=== PATIENT | male | born 1950 | race Caucasian/White ===

== ENCOUNTER 2019-07-22 07:31 | Outpatient (RCR) | payer MEDICARE, OTHER, SELFPAY ==
[2019-07-21 13:01] LABS: Hematocrit 27.8 % (42.0-52.0); Hemoglobin 9.2 g/dL (14.0-18.0)
[2019-07-22] VITALS (10 sets, daily range): BP systolic 139–174; BP diastolic 48–66; PULSE 58–66; RESP 16; TEMP 36.6–37; O2SAT 98–100
[2019-07-22] MEDS: SODIUM CHLORIDE 0.9% IV 250 ML 30 ML IV CONT (08:12)
[2019-07-22] MEDS: HEPARIN SOD FLUSH 500 UNITS/5 ML SYRINGE (13:55)
== END 2019-10-19 23:59 | disposition home or self-care (01) ==
LOC: ANHCPCTRAN 07:31
PROVIDERS: PCP Internal Medicine; Visit Provider Internal Medicine Medical Oncology
DX: I25.10 Atherosclerotic heart disease of native coronary artery without angina pectoris (principal); K92.2 Gastrointestinal hemorrhage, unspecified; N18.3 Chronic kidney disease, stage 3 (moderate); D50.0 Iron deficiency anemia secondary to blood loss (chronic); D61.818 Other pancytopenia
CPT/HCPCS: 36415; 36430; 85014; 85018; 86850; 86900; 86901; 86922; P9038; J7050

== ENCOUNTER 2019-09-06 17:10 | Inpatient (IN) | payer MEDICARE, OTHER, SELFPAY ==
[2019-09-06] VITALS (18 sets, daily range): BP systolic 132–187; BP diastolic 40–74; PULSE 83–110; RESP 17–24; TEMP 36.8–37.8; O2SAT 91–100; BMI 40.1
--- NOTE | ~2019-09-06 | US_ITS ---
EXAMINATION: US venous doppler LE EXAM DATE: 09/07/2019 16:59 INDICATION: Lateral leg edema. TECHNIQUE: Multiple grayscale, color flow and Doppler images of the lower extremity deep venous syste ms bilaterally were obtained and reviewed. Comparison is made to prior examination from 07/05/2019. FINDINGS: Right side: The right common femoral, femoral and profunda veins demonstrate normal color flow, respi ratory variation, augmentation and compressibility. Compressibility, color flow confirmed within the right popliteal, posterior tibial, peroneal, and greater saphenous veins. Left side: The left common femoral, femoral and profunda veins demonstrate normal color flow, respira tory variation, augmentation and compressibility. Compressibility, color flow confirmed within the l eft popliteal, posterior tibial, peroneal, and greater saphenous veins. IMPRESSION: 1. No lower extremity deep venous thrombosis bilaterally. Reviewed, dictated and finalized at location A. OW CLERK
--- NOTE | ~2019-09-06 | XR_ITS ---
EXAMINATION: XR chest 2V EXAM DATE: 09/06/2019 18:54 INDICATION: Shortness of breath. TECHNIQUE: Frontal and lateral projections of the chest obtained and reviewed. Comparison is made to prior examination from 08/16/2019. FINDINGS: Again there is moderate-sized right pleural effusion with adjacent airspace disease partly atelectasis. No pneumothorax. Cardiac silhouette is stable in size compared to prior exam. Right-maynor ed portacatheter. Bilateral shoulder primary osteoarthritis. Compared to prior exam, probable interva l increase in size of the right pleural effusion. IMPRESSION: 1. Moderate right pleural effusion, adjacent atelectasis. 2. Can't exclude basilar edema or pneumonia bilaterally. Reviewed, dictated and finalized at location A. STERED RESPIRATORY TECHNICIAN
--- NOTE | ~2019-09-06 | US_ITS ---
EXAMINATION: US paracentesis abd w/image DATE: 09/07/2019 16:59 INDICATION: Ascites. TECHNIQUE: The procedure and its risks and benefits were discussed with patient in the patient's go r of assistant district attorney. Potential risks discussed included bleeding and infection. The skin was prepped and dr aped in sterile fashion. 1% lidocaine was used for local anesthesia. Under ultrasound guidance, a 5 F r catheter with trochar was advanced into the ascites in the left lower quadrant. Fluid was aspirated into vacuum bottles. The catheter was removed, and a dressing was applied. There were no immediate c omplications. FINDINGS: Ultrasound images demonstrate ascites and the catheter within the fluid. IMPRESSION: 1. Successful ultrasound-guided paracentesis yielding 1450 mL of fluid. Reviewed, dictated and finalized at location A. OR SVP
--- NOTE | ~2019-09-06 | CT_ITS ---
EXAMINATION: CT brain wo con EXAM DATE: 09/06/2019 22:01 INDICATION: Temporary change in awareness. TECHNIQUE: Spiral CT of the head was performed without contrast. Axial, coronal and sagittal images were reviewed. The dose-length product (DLP) for this examination was 681.00 mGy-cm. The exposure w as tailored according to patient size, and iterative reconstruction (ASIR) was used as additional dos e reduction technique. Comparison is made to prior examination from 07/28/2019. FINDINGS: There is no acute intraparenchymal hemorrhage. No evidence of intraparenchymal brain mass lesion. No evidence of acute infarction. Please note that initial head CT has limited sensitivity f or small or acute infarctions. There is mild periventricular and subcortical hypodensity, nonspecific but probably related to small vessel ischemic disease. There is mild prominence of the sulci and v entricles related to cerebral atrophy. There is intracranial carotid arteriosclerosis. There are n o extra-axial collections. There is no mass effect or midline shift. Patient has had bilateral ocul ar lens surgery. Soft tissue is unremarkable. Resolution of previously seen right maxillary sinus h emorrhage. There is chronic left sphenoid opacity. IMPRESSION: 1. No acute intracranial findings. 2. Chronic age related findings. Reviewed, dictated and finalized at location A. CS ENGINEER
--- NOTE | ~2019-09-06 | CT_ITS ---
EXAMINATION: CT chest wo con EXAM DATE: 09/06/2019 21:35 INDICATION: Shortness of breath. Confusion. TECHNIQUE: Spiral CT of the chest without contrast. Axial, coronal and sagittal images were reviewe d. Coronal maximum intensity pixel images of chest reviewed. The dose-length product (DLP) for this examination was 681.00 mGy-cm. The exposure was tailored according to patient size (auto mA exposur e control), and iterative reconstruction (ASIR) was used as additional dose reduction technique. The re is no prior study for comparison. FINDINGS: There is large right pleural effusion with completely collapsed right lower lobe. Subsegme ntal atelectasis of the right upper and right middle lobes. Left lung is clear. No pericardial effusi on. Tracheobronchial tree is patent. There is no mediastinal, hilar or axillary lymphadenopathy. There is no pneumothorax. Mild cardiomegaly. There is moderate coronary arterial calcification, a rterial sclerosis. Moderate amount of perihepatic ascites. Cholecystectomy clips. Cirrhosis and hepa tosplenomegaly. There is moderate thoracic spondylosis without focal osteoblastic or osteolytic lesi ons identified. IMPRESSION: 1. Large right pleural effusion with adjacent compressive atelectasis. 2. Hepatosplenomegaly, cirrhosis, ascites. Reviewed, dictated and finalized at location A. MECHANIC
--- NOTE | ~2019-09-06 | US_ITS ---
EXAMINATION: US thoracentesis DATE: 09/07/2019 16:59 INDICATION: Large right pleural effusion TECHNIQUE: The procedure and its risks and benefits were discussed with the patient and the patient's power of trust and estates attorney. Potential risks discussed included bleeding, infection, and pneumothorax. The pat ient understood the risks and agreed to proceed. The skin was prepped and draped in sterile fashion. 1% lidocaine was used for local anesthesia. Under ultrasound guidance, a 5 Fr catheter with trochar w as advanced into the large right pleural effusion. Fluid was aspirated. The catheter was removed, and a dressing was applied. There were no immediate complications. FINDINGS: Ultrasound images demonstrate a large right pleural effusion and the catheter within the fluid. IMPRESSION: 1. Successful ultrasound-guided thoracentesis yielding 1000 mL of dark reddish fluid. Reviewed, dictated and finalized at location A. NG INSPECTOR
--- NOTE | ~2019-09-06 | XR_ITS ---
EXAMINATION: XR chest 2V DATE: 09/07/2019 16:51 INDICATION: Postthoracentesis TECHNIQUE: AP and lateral views of the chest are obtained. COMPARISON: 09/06/2019 FINDINGS: There is interval decrease in size of the right pleural effusion postthoracentesis. No pneu mothorax is identified. A right subclavian Port-A-Cath ends with its tip in the midsuperior vena cava . There is stable cardiomegaly. Airspace opacities of the right mid and lower lung zones likely refle ct passive atelectasis. IMPRESSION: 1. Interval decrease in size of right pleural effusion postthoracentesis without pneumothorax. 2. Stable cardiomegaly. 3. Airspace opacities of the right mid and lower lung zones, likely passive atelectasis. Reviewed, dictated and finalized at location A. ICAL SERVICES ASST IMPRESSION: 1. Interval decrease in size of right pleural effusion postthoracentesis withou t pneumothorax. 2. Stable cardiomegaly. 3. Airspace opacities of the right mid and lower lung zones, likely passive ate lectasis.
--- NOTE | 2019-09-06 17:18 | ED.SOB ---
HPI - SOB/Dyspnea General Chief Complaint: Shortness of Breath/Dyspnea Stated Complaint: sob Time Seen by Provider: 09/06/19 17:37 Source: patient and family Mode of arrival: EMS Limitations: no limitations History of Present Illness HPI Narrative: A 69 y/o male presents to the ED, via EMS from [facility], with c/o SOB. Per patient's family, they state that they were called by assisted living staff for sudden onset SOB, cough, weakness, wheezing, and cold skin. The patient did not have a fever at the [facility], but has a 100F at the ED. Family states that he is incoherent and that he has shallow breathing. Pt fell 1 month ago and has been going to therapy daily. He has a PMHx of cirrhosis, HTN, hyperlipidemia, and diabetes. Pt has a DNR. MD elicited complaint: shortness of breath Pertinent past history: diabetes Onset (ago): hour(s) (Today) Timing: constant Known history of: diabetes Associated symptoms: fever, cough, wheezing and other (Cold skin, incoherent, shallow breathing, weakness) Related Data Home Medications Medication Instructions Recorded Confirmed Hm Complete 50+ 1 tab-cap PO DAILY 07/04/19 09/06/19 Humulin R U-500 (Conc) Kwikpen 30 - 55 unit SUBCUT TIDWM PRN 07/04/19 09/06/19 Thalomid 50 mg PO BID 07/04/19 09/06/19 Xifaxan 550 mg PO BID 07/04/19 09/06/19 allopurinol 100 mg PO Q12H 07/04/19 09/06/19 ascorbic acid (vitamin C) [Vitamin 1 g PO QNOON 07/04/19 09/06/19 C] aspirin 81 mg PO DAILY 07/04/19 09/06/19 atorvastatin 40 mg PO HS 07/04/19 09/06/19 bumetanide 2 mg PO DAILY 07/04/19 09/06/19 cholecalciferol (vitamin D3) 2,000 unit PO Q12H 07/04/19 09/06/19 [Vitamin D3] cinnamon bark [Cinnamon] 1,000 mg PO QNOON 07/04/19 09/06/19 clonidine HCl 0.1 mg PO DAILY 07/04/19 09/06/19 escitalopram oxalate 10 mg PO HS 07/04/19 09/06/19 isosorbide dinitrate 5 mg PO Q12H 07/04/19 09/06/19 nitroglycerin 0.4 mg SUBLINGUAL PRN PRN 07/04/19 09/06/19 omega 4-kpx-rdn-fish oil [Fish Oil] 1 cap PO BID 07/04/19 09/06/19 pregabalin 75 mg PO Q12H 07/04/19 09/06/19 quinapril 10 mg PO DAILY 07/04/19 09/06/19 ranolazine 500 mg PO Q12H 07/04/19 09/06/19 ursodiol 500 mg PO TID 07/04/19 09/06/19 Vitamin B-12 2,000 mcg PO QNOON 09/06/19 09/06/19 lactulose 5 ml PO QPM 09/06/19 09/06/19 lactulose 20 ml PO BID 09/06/19 09/06/19 pantoprazole [Protonix] 40 mg PO QAM 09/06/19 09/06/19 Allergies Allergy/AdvReac Type Severity Reaction Status Date / Time diphenhydramine Allergy Unknown Itching Verified 08/24/19 13:21 Penicillins Allergy Unknown Unknown Verified 08/24/19 13:21 sulfamethizole Allergy Unknown Unknown Verified 08/24/19 13:21 sulfamethoxazole Allergy Unknown ELEVATED Verified 08/24/19 13:21 POTASSIUM LEVEL trimethoprim Allergy Unknown Unknown Verified 08/24/19 13:21 Review of Systems Review of Systems: All systems reviewed & are unremarkable except as noted in HPI and below Constitutional: Constitutional: Reports fever(s) Respiratory: Respiratory: Reports cough, Reports dyspnea, Reports wheezing and Reports other (Shallow breathing) Integumentary/Breasts: Skin/Breast: Reports other (Cold skin) Neurologic: Reports weakness and Reports other (Incoherent) [facility] Past Medical History Medical History (Updated 09/18/19 @ 08:51 by Sharon Gonzalez MD) Acute hepatic encephalopathy Acute hypokalemia Acute UTI Anemia Ascites Bacteremia Bacteriuria BPH (benign prostatic hyperplasia) Cataracts, bilateral Cirrhosis Coronary artery disease Diabetes DM (diabetes mellitus) DVT prophylaxis GI bleed Gout HCC (hepatocellular carcinoma) Hyperlipidemia Hypertension Increased ammonia level Kidney stone Myelodysplastic syndrome Non-alcoholic cirrhosis Pancytopenia Peripheral neuropathy Pleural effusion Port-A-Cath in place Right chest Renal disease stage 3 Shingles Sleep apnea Thrombocytopenia Surgical History Surgical History (Updated 09/07/19 @ 00:50 by Caterina Damian, LAMP SHADES SUPERVISOR
--- NOTE | 2019-09-06 17:39 | ECG_ITS ---
Measurements Intervals [place] Rate: 103 P: 38 SD: 175 QRS: 29 QRSD: 86 T: 122 QT: 336 QTc: 441 Interpretive Statements SINUS T[address]CARDIA [address]-T WAVE ABNORMALITY IN LATERAL LEADS- CONSIDER ISCHEMIA BASELINE ARTIFACT- I, II, III, AVR, AVL, AVF, V1-V3 ABNORMAL ECG Electronically Signed On 09-06-2019 20:22:44 PROPELLER LAYOUT WORKER by Akbar Serrato D.O.
[2019-09-06 18:06] LABS: Basophils Percent Auto 0.9 % (0.2-1.2); Eosinophils Absolute Auto 0.2 K/mm3 (0-0.3); Eosinophils Percent Auto 3.5 % (0-4.4); Hematocrit 30.1 % (42.0-52.0); Immature Granulocyte Absolute 0.01 K/mm3 (0.00-0.031); Immature Granulocyte Percent A 0.2 % (0-0.5); Lymphocytes Absolute Auto 0.61 K/mm3 (0.9-3.2); Lymphocytes Percent Auto 13.5 % (18.3-44.2); Mean Corpuscular HGB Conc 33.2 g/dl (32-36); Mean Corpuscular Hemoglobin 33.3 pg (26-34); Mean Corpuscular Volume 100.3 fl (80-100); Mean Platelet Volume 10.6 fl (7.4-10.4); Monocytes Absolute Auto 0.5 K/mm3 (0.1-0.6); Monocytes Percent Auto 10.2 % (2.6-8.5); Neutrophils Absolute Auto 3.2 K/mm3 (1.3-6.7); Neutrophils Percent Auto 71.7 % (45.5-73.1); Platelet Count Result 57 k/mm3 (150-375); Red Cell Distribution Width 17.4 % (11.5-14.5); White Blood Count 4.5 K/mm3 (4.5-10.0)
[2019-09-06 18:11] LABS: Alveolar/Arterial O2 Gradient 55.8 mmHg; Base Excess ABG 1.7 mEq/l (+/-2.0); Fractional Inspired Oxygen 21 %; HCO3 ABG 24.3 mEq/l (22.0-26.0); Oxygen Content ABG 13.8 %vol (16.0-22.0); Oxygen Saturation ABG 92.2 % (95.0-100.0); Oxyhemoglobin 88.6 % THb (90.0-100.0); PCO2 ABG 31.4 mmHg (35.0-45.0); PO2 ABG 56.3 mmHg (80.0-100.0); PO2 FiO2 Ratio Arterial Blood 2.68 %; Total Hemoglobin 11.1 g/dL (12.0-18.0); pH ABG 7.507 (7.350-7.450)
[2019-09-06 18:12] LABS: Device ROOM AIR; Modified Allen's Test Pass; Site Drawn LEFT RADIAL
[2019-09-06 18:16] LABS: INR 1.5; Prothrombin Time 17.7 Seconds (11.1-14.7)
[2019-09-06 18:17] LABS: Partial Thromboplastin Time 48.5 SECONDS (22.3-36.8)
[2019-09-06 18:26] LABS: Lactic Acid Reflex 2.4 mmol/L (0.7-2.1)
[2019-09-06] MEDS: ALBUTEROL SULFATE NEB 2.5 MG/0.5 ML INH 5 MG INHALATION (18:29)
[2019-09-06 18:30] LABS: Alanine Aminotransferase 26 U/L (4-50); Albumin Level 2.6 g/dL (3.5-5.1); Alkaline Phosphatase 138 U/L (38-126); Aspartate Amino Transferase 41 U/L (17-59); Bilirubin,Total 2.1 mg/dL (0.2-1.3); Blood Urea Nitrogen 12 mg/dL (9-20); CRP 2.3 mg/dL (<1.0); Calcium 8.1 mg/dL (8.4-10.2); Carbon Dioxide 30 mmol/L (22-30); Chloride 97 mmol/L (98-107); Estimated CRCL calculation 89 ml/min; Estimated Glomerular Filt Rate > 60; Glucose 189 mg/dL (75-110); Sodium 135 mmol/L (137-145)
[2019-09-06 18:36] LABS: NT Pro B Type Natriuretic Pept 221 PG/ML (5-100)
[2019-09-06 18:58] LABS: Add Urine Microscopic? YES; Appearance Urine Cloudy (Clear); Bacteria Urine Trace /hpf; Bilirubin Urine Negative (Negative); Blood Urine 3+ (Negative); Color Urine Amber (Yellow); Glucose Urine UA 1+ mg/dL (Negative); Ketones Urine Negative (Negative); Leukocyte Esterase Ur Negative LEU/UL (Negative); Mucus Urine Rare /lpf; Nitrate Urine Negative (Negative); Protein Urine Negative (Negative); RBC Urine >75 /hpf (0-2); Specific Grav Ur 1.014 (1.001-1.035); Squamous Epithelial Cell Urine Rare /hpf (Few); WBC Urine 16-20 /hpf
[2019-09-06] MEDS: POTASSIUM CHLORIDE 20 MEQ PACKET (FOR LIQUID) 40 MEQ PO (20:35)
--- NOTE | 2019-09-06 20:35 | PC.NURSE ---
Pt drinks water and potassium when held up to mouth. Continues to lie on stretcher with eyes closed.
--- NOTE | 2019-09-06 20:59 | PC.NURSE ---
Attempt to call report, floor unable to take.
[2019-09-06 21:04] LABS: Reflex Lactic Acid Yes or No Add Lactic
--- NOTE | 2019-09-06 21:26 | PC.NURSE ---
To CT via stretcher. Report to IMU. Preparing to transport to IMU upon return.
--- NOTE | 2019-09-06 21:42 | PC.NURSE ---
Pt returns to room, repeat lactic sent. Pt returns to CT.
[2019-09-06 21:58] LABS: Lactic Acid 2.8 mmol/L (0.7-2.1)
--- NOTE | 2019-09-06 22:37 | ADMGEN ---
This patient, Benny Ryder, was admitted to IMU Room 207-01. Patient/family oriented to hospital policies and general routines including ID bracelet, bed and alarms, visiting hours, pain management, procedures, bathroom and other care routines, personal items, smoking policy, room service/diet, and visiting hours. Valuables list has been completed. Information on how to activate the Rapid Response Team has been discussed. Patient/Family are encouraged to report perceived risks to care and to ask questions if they do not understand what they are told or what they should do.
[2019-09-06 23:14] LABS: Glucose Point of Care 214 (65-105)
[2019-09-07] VITALS (28 sets, daily range): BP systolic 119–156; BP diastolic 41–59; PULSE 61–94; RESP 18–30; TEMP 36.4–37.4; O2SAT 92–100
--- NOTE | 2019-09-07 00:37 | PM.IMHP ---
H&P: HPI History of Present Illness Chief complaint: pneumonia,urinary tract infection,hypokalemia,pleu Narrative: Benny Ryder is a 69 year old male who has a history of SHEPHERD. The patient resides at [facility] living in [place] complain of shortness of breath today. The patient has had thoracentesis in the past as well as paracentesis. Patient currently has anasarca. The patient did not have a fever at [facility] found to have 100 degree fever here. Family stated that he was incoherent having shallow breath sounds. Initially patient was found to be a DNR however family members have brought in his living will and it states that if it looks like that he will not survive then to stop all measures. It looks like he is a full code. The patient's last admission was 07/05/2019 when he came in with a UTI and hepatic encephalopathy and hypokalemia. The patient was discharged . Patient is seen Dr. Muhammad in the past for cirrhosis of the liver. He also sees Dr. Ocampo at [place]. He also sees a recordist at [place]. He also had a contaminated blood culture when he was here last time. He is followed by Dr. chase for his myelodysplastic syndrome. Patient initially was treated for pneumonia in the emergency room and was given azithromycin and Rocephin. Ammonia level was not checked. His potassium levels found to be 3.0 and was replaced with potassium supplement. Patient's chest x-ray was read as moderate right pleural effusion, adjacent atelectasis. Cannot exclude basilar edema or pneumonia bilaterally. CT of the brain showed nothing acute. CT of the chest was read as a large pleural effusion with that at duct of compressive atelectasis. Hypaque toe splenomegaly, cirrhosis ascites. Date of service is 09/06/2019. Patient is not answering questions as he has altered mental status. Review of Systems Review of Systems: Narrative: Patient is answering yes and no to some questions but otherwise is a poor historian. All systems reviewed & are unremarkable except as noted in HPI and below Constitutional: Constitutional: Reports as per HPI and Reports no additional constitutional complaints Eyes: Eyes: Reports as per HPI and Reports no additional eye complaints ENT: Reports system reviewed and no additional complaints, except as documented and Reports Normal hearing present Cardiovascular: Cardiovascular: Reports no additional cardiovascular complaints Respiratory: Respiratory: Reports no additional respiratory complaints and Reports no additional respiratory complaints Gastrointestinal: Gastrointestinal: Reports as per HPI and Reports no additional gastrointestinal complaints Musculoskeletal: Musculoskeletal: Reports no additional musculoskeletal complaints Integumentary/Breasts: Skin/Breast: Reports system reviewed and no additional complaints, except as docu and Reports as per HPI Neurologic: Reports system reviewed and no additional complaints, except as documented, Reports as per HPI and Reports Normal hearing present Psychiatric: Psychiatric: Reports no additional psychiatric complaints and Reports as per HPI Endocrine: Endocrine: Reports no additional endocrine complaints Hematologic/Lymphatic: Hematologic/Lymphatic: Reports no additional hematologic/lymphatic complaints Allergic/Immunologic: Allergic/Immunologic: Reports no additional allergic/immunologic complaints [facility] Past Medical History Medical History (Updated 09/07/19 @ 01:01 by Caterina Damian NP) Acute hepatic encephalopathy Acute hypokalemia Acute UTI Anemia Bacteriuria BPH (benign prostatic hyperplasia) Cataracts, bilateral Cirrhosis Coronary artery disease Diabetes DM (diabetes mellitus) DVT prophylaxis GI bleed Gout Hyperlipidemia Hypertension Increased ammonia level Kidney stone Myelodysplastic syndrome Non-alcoholic cirrhosis Pancytopenia Peripheral neuropathy Pleural effusion Port-A-Cath in place Right chest Renal disea
[2019-09-07 01:03] LABS: Ammonia 74 umol/L (9-30)
[2019-09-07 01:04] LABS: Blood Urea Nitrogen 13 mg/dL (9-20); Calcium 7.9 mg/dL (8.4-10.2); Carbon Dioxide 30 mmol/L (22-30); Chloride 100 mmol/L (98-107); Estimated CRCL calculation 82 ml/min; Estimated Glomerular Filt Rate > 60; Glucose 195 mg/dL (75-110); Sodium 136 mmol/L (137-145)
[2019-09-07 01:06] LABS: Albumin Level 2.4 g/dL (3.5-5.1)
[2019-09-07] MEDS: SODIUM CHLORIDE 0.9% IV 1,000 ML 999 ML IV CONT (01:17)
[2019-09-07] MEDS: LACTULOSE ENEMA 200 GM/1,000 ML ENEMA RECTAL (01:57)
[2019-09-07] MEDS: FUROSEMIDE INJ 40 MG/4 ML VIAL IV PUSH (02:16)
[2019-09-07 07:19] LABS: Glucose Point of Care 170 (65-105)
[2019-09-07 07:25] LABS: Eosinophils Absolute Auto 0.1 K/mm3 (0-0.3); Eosinophils Percent Auto 1.5 % (0-4.4); Hemoglobin 9.2 g/dL (14.0-18.0); Immature Granulocyte Absolute 0.02 K/mm3 (0.00-0.031); Immature Granulocyte Percent A 0.5 % (0-0.5); Immature Platelet Fraction Pct 2.3 % (0.9-11.2); Lymphocytes Absolute Auto 0.56 K/mm3 (0.9-3.2); Lymphocytes Percent Auto 13.7 % (18.3-44.2); Mean Corpuscular HGB Conc 32.9 g/dl (32-36); Mean Corpuscular Hemoglobin 33.3 pg (26-34); Mean Corpuscular Volume 101.4 fl (80-100); Mean Platelet Volume 10.5 fl (7.4-10.4); Monocytes Absolute Auto 0.4 K/mm3 (0.1-0.6); Monocytes Percent Auto 10.8 % (2.6-8.5); Neutrophils Percent Auto 72.5 % (45.5-73.1); Platelet Count Result 44 k/mm3 (150-375); Red Blood Count 2.76 M/mm3 (4.6-6.20); Red Cell Distribution Width 17.8 % (11.5-14.5); White Blood Count 4.1 K/mm3 (4.5-10.0)
[2019-09-07 07:35] LABS: Blood Urea Nitrogen 13 mg/dL (9-20); Carbon Dioxide 31 mmol/L (22-30); Chloride 101 mmol/L (98-107); Estimated CRCL calculation 82 ml/min; Estimated Glomerular Filt Rate > 60; Glucose 205 mg/dL (75-110); Potassium 3.5 mmol/L (3.4-5.0); Sodium 138 mmol/L (137-145)
[2019-09-07 07:56] LABS: Platelet Estimate Decreased (Adequate); Stomatocytes 2+ (NORMAL)
[2019-09-07] MEDS: rifAXIMin 550 MG TABLET PO ×2 (09:04→17:33)
[2019-09-07] MEDS: ISOSORBIDE DINITRATE 5 MG TABLET PO ×2 (09:04→20:18)
[2019-09-07] MEDS: RANOLAZINE 500 MG TAB.ER.12H PO ×2 (09:04→20:18)
[2019-09-07] MEDS: LACTULOSE 20 GM/30 ML UDC 13.3333333 GM PO (09:05)
[2019-09-07] MEDS: ASPIRIN 81 MG CHEWABLE TABLET PO (09:05)
[2019-09-07 09:07] LABS: Magnesium 1.4 mg/dL (1.6-2.3)
[2019-09-07] MEDS: PREGABALIN 75 MG CAPSULE PO ×2 (09:07→20:18)
[2019-09-07 11:43] LABS: Glucose Point of Care 186 (65-105)
[2019-09-07] MEDS: SODIUM CHLORIDE 0.9% IV 250 ML 30 ML IV CONT (12:28)
[2019-09-07] MEDS: TUBING, BLOOD PLUM PUMP TUBING 1 EACH XX (12:38)
--- NOTE | 2019-09-07 13:41 | PCCCNOTE ---
On 09/07/19, the student, [Ai Mcintyre ], provided care and [facility]. I have reviewed the student's documentation and agree with the findings.
--- NOTE | 2019-09-07 15:43 | WPDGICN ---
Assessment and Plan Assessment and plan (1) Non-alcoholic cirrhosis: Code(s): K74.60 - Unspecified cirrhosis of liver Status: Chronic Assessment and Plan: decompensated cirrhosis with ascites, also encephalopathy. Patient will get paracentesis and need to rule out infection, also thoracentesis. MELD score 15, 2 years ago had treatment by ablation of small HCC and he has seen environmental sampling technician at [facility]. residential prognosis is guarded (2) Anasarca: Code(s): R60.1 - Generalized edema Status: Acute Assessment and Plan: 2 g na diet, on diuretics (3) Pleural effusion: Code(s): J90 - Pleural effusion, not elsewhere classified Status: Acute (4) Pneumonia: Qualifiers: Laterality: bilateral Lung location: lower lobe of lung Pneumonia type: due to unspecified organism Qualified Code(s): J18.9 - Pneumonia, unspecified organism Code(s): J18.9 - Pneumonia, unspecified organism Status: Acute Assessment and Plan: on iv antibiotics (5) Pleural effusion: Code(s): J90 - Pleural effusion, not elsewhere classified Status: Acute (6) Acute hepatic encephalopathy: Code(s): K72.00 - Acute and subacute hepatic failure without coma Status: Acute Assessment and Plan: continue with lactulose and xifaxan (7) Myelodysplastic syndrome: Code(s): D46.9 - Myelodysplastic syndrome, unspecified Status: Chronic Assessment and Plan: known diagnosis, also lowe platelets (8) Diabetes: Qualifiers: Diabetes mellitus complication status: without complication Diabetes mellitus skilled nursing insulin use: with salvage determiner use Diabetes mellitus type: type 2 Qualified Code(s): E11.9 - Type 2 diabetes mellitus without complications; Z79.4 - medical terminologist (current) use of insulin Code(s): E11.9 - Type 2 diabetes mellitus without complications Status: Chronic (9) HCC (hepatocellular carcinoma): Code(s): C22.0 - Liver cell carcinoma Status: Acute (10) Thrombocytopenia: Code(s): D69.6 - Thrombocytopenia, unspecified Status: Acute GI Consult Note Consult date/time: 09/07/19 15:43 reason for consult: cirrhosis HPI: Benny Ryder is a 69 year old male with SHEPHERD cirrhosis, hepatocellular carcinoma ~ 1.5 cm size treated with ablation at [facility], CKD stage 3, MDS, esophageal varices grade 1 and GAVE (EGD 08/2017 at [facility]), PSE, ANJEL, ascites, thrombocytopenia who I have seen in my office few months ago.The patient resides at [facility] and was brought here with shortness of breath and leg edema, also family noted confusion (can not get history from him and mostly obtained from records). CT scan showed large right pleural effusion with adjacent compressive atelectasis, hepatosplenomegaly, cirrhosis and ascites. Also had elevated amonia. Review of Systems Review of Systems: ROS unobtainable: unobtainable due to mental status PMF[facility] Past Medical History Medical History (Updated 09/07/19 @ 15:53 by Levi Roy MD) Acute hepatic encephalopathy Acute hypokalemia Acute UTI Anemia Bacteriuria BPH (benign prostatic hyperplasia) Cataracts, bilateral Cirrhosis Coronary artery disease Diabetes DM (diabetes mellitus) DVT prophylaxis GI bleed Gout HCC (hepatocellular carcinoma) Hyperlipidemia Hypertension Increased ammonia level Kidney stone Myelodysplastic syndrome Non-alcoholic cirrhosis Pancytopenia Peripheral neuropathy Pleural effusion Port-A-Cath in place Right chest Renal disease stage 3 Shingles Sleep apnea Thrombocytopenia Surgical History Surgical History (Updated 09/07/19 @ 00:50 by Caterina Damian NP) H/O cystoscopy H/O repair of rotator cuff rt x2 History of carpal tunnel release History of coronary artery stent placement Hx of appendectomy Hx of cardiac cath Hx of cataract surgery bilateral Hx of cholecystectomy with stent Hx of to
--- NOTE | 2019-09-07 15:46 | PM.IMPN ---
Progress Note: A&P Assessment and Plan (1) Pleural effusion: Code(s): J90 - Pleural effusion, not elsewhere classified Status: Acute Assessment and Plan: Patient is scheduled for thoracentesis later today as well as paracentesis this will help is oxygenation (2) Acute hypokalemia: Code(s): E87.6 - Hypokalemia Status: Acute Assessment and Plan: Potassium was replaced on check a BMP and replace as needed. (3) Acute hepatic encephalopathy: Code(s): K72.00 - Acute and subacute hepatic failure without coma Status: Acute Assessment and Plan: Most likely secondary to SHEPHERD cirrhosis with ammonia level of 77 patient is on lactulose will continue to monitor (4) Sleep apnea: Qualifiers: Sleep apnea type: unspecified type Qualified Code(s): G47.30 - Sleep apnea, unspecified Code(s): G47.30 - Sleep apnea, unspecified Status: Chronic Assessment and Plan: Titrate CPAP (5) Cirrhosis: Qualifiers: Hepatic cirrhosis type: unspecified hepatic cirrhosis Ascites presence: with ascites Qualified Code(s): K74.60 - Unspecified cirrhosis of liver; R18.8 - Other ascites Code(s): K74.60 - Unspecified cirrhosis of liver Status: Chronic Assessment and Plan: Patient is seen by Dr. Muhammad and the past, will order paracentesis start the patient on lactulose and further recommendation to follow (6) Myelodysplastic syndrome: Code(s): D46.9 - Myelodysplastic syndrome, unspecified Status: Chronic Assessment and Plan: The patient has seen Dr. carmichael and had been getting routine blood transfusions. I also consulted Oncology. Patient also has thrombocytopenia, his platelets are 44 will give 1 unit of platelets before the procedure (7) Anasarca: Code(s): R60.1 - Generalized edema Status: Acute Assessment and Plan: Due to SHEPHERD. Patient appears dry and his lactic acid has been increasing. I spoke with my collaborative who agrees with 1 L fluid bolus followed by IV Lasix. Continue with patient's ex Xifaxan when he is able to take his p.o. medication. (8) Diabetes: Qualifiers: Diabetes mellitus type: type 2 Diabetes mellitus ferry terminal supervisor insulin use: with shelter use Diabetes mellitus complication status: without complication Qualified Code(s): E11.9 - Type 2 diabetes mellitus without complications; Z79.4 - ferry terminal supervisor (current) use of insulin Code(s): E11.9 - Type 2 diabetes mellitus without complications Status: Chronic Assessment and Plan: Accu-Cheks AC and HS. Additional Plan Anemia of chronic disease. Continue to monitor the patient looks like he is at his baseline. Hyperlipidemia I am holding his atorvastatin. I am holding all of his medications at this time as the patient is lethargic. Subjective Date/time seen: 09/07/19 15:46 Patient is 69-year-old male with history of SHEPHERD and liver failure about a cell carcinoma patient is a [facility] patient was quite somnolent and lethargic he was sent to emergency department further evaluation his ammonia level is 77 his hepatic encephalopathy, he has ascites and pleural effusion, present time patient does appear some short of breath is unable to provide any review of symptoms is quite somnolent, Review of Systems Review of Systems: ROS unobtainable: unobtainable due to mental condition Exam Narrative: Exam Narrative: Patient is elderly frail and confused Const: General: no acute distress and uncomfortable HENMT: General nose exam: Normal nares present Mouth: Yes moist mucous membranes Eyes: General: appearance normal, both eyes and all related structures Sclera: sclerae normal Neck: Neck: supple Resp: Other: He has bilateral poor air entry with rhonchi Cardio: Rate: regular rate Rhythm: regular rhythm GI: Other: Abdomen with ascites bowel sounds are faint Skin: Other: Skin is pallor Neuro:
[2019-09-07 16:36] LABS: pH Pleural Fluid 7.501 (7.210-7.500)
[2019-09-07 17:10] LABS: Glucose Point of Care 157 (65-105)
[2019-09-07] MEDS: LACTULOSE 20 GM/30 ML UDC 3.3333333 GM PO (17:32)
--- NOTE | 2019-09-07 17:45 | WPDONCCN ---
Assessment and Plan Assessment and plan (1) Thrombocytopenia: Code(s): D69.6 - Thrombocytopenia, unspecified Status: Acute Assessment and Plan: His counts are around his baseline. No active bleeding. He does have pancytopenia but counts are stable. Will not obtain further workup. (2) Acute hepatic encephalopathy: Code(s): K72.00 - Acute and subacute hepatic failure without coma Status: Acute Assessment and Plan: treatment as per the primary team (3) HCC (hepatocellular carcinoma): Code(s): C22.0 - Liver cell carcinoma Status: Acute Assessment and Plan: he received microwave ablation for HCC. Follow in [facility]. HPI Data of Consult Date/Time: 09/07/19 17:45 Requesting Physician: Simone Jovel MD Primary Care Provider: Julio Potter, Consult Narrative Narrative: Benny Ryder is a 69 year old male With history of SHEPHERD and end-stage liver disease who is well known to Dr. Mclain as a follows him for iron deficiency anemia secondary to GI bleed due to esophageal varices. he requires frequent transfusion and iron infusion for his iron deficiency. He resides at [facility] and was found to have a low-grade fever and incoherent with shallow breathing by family. His past admission in June 2019 was for you to iron hepatic encephalopathy as well as hypokalemia. He follows with a access services representative at [place]. His baseline platelet count is between 40-50K he has a hemoglobin around 9 g per dL. he presented with anasarca also and he was found to have significant ascites as well as significant RT pleural effusion On CT chest. He underwent therapeutic thoracocentesis as well as paracentesis with improvement of his symptoms. I have been consulted for his pancytopenia. Review of Systems Review of Systems: Narrative: Fourteen point review of system with pertinent positives as per HPI. Rest of the systems negative. All systems reviewed & are unremarkable except as noted in HPI and below PMFSH Past Medical History Medical History (Updated 09/08/19 @ 11:49 by Levi Roy MD) Acute hepatic encephalopathy Acute hypokalemia Acute UTI Anemia Ascites Bacteriuria BPH (benign prostatic hyperplasia) Cataracts, bilateral Cirrhosis Coronary artery disease Diabetes DM (diabetes mellitus) DVT prophylaxis GI bleed Gout HCC (hepatocellular carcinoma) Hyperlipidemia Hypertension Increased ammonia level Kidney stone Myelodysplastic syndrome Non-alcoholic cirrhosis Pancytopenia Peripheral neuropathy Pleural effusion Port-A-Cath in place Right chest Renal disease stage 3 Shingles Sleep apnea Thrombocytopenia Surgical History Surgical History (Updated 09/07/19 @ 00:50 by Caterina Damian NP) H/O cystoscopy H/O repair of rotator cuff rt x2 History of carpal tunnel release History of coronary artery stent placement Hx of appendectomy Hx of cardiac cath Hx of cataract surgery bilateral Hx of cholecystectomy with stent Hx of total knee arthroplasty rt patient stated he had 3 surgeries that right knee anti C3 scars. Family History Family History Father Acute myocardial infarction Diabetes mellitus Mother Myelodysplasia (myelodysplastic syndrome) Sibling Diabetes mellitus Social History Social History (Updated 09/07/19 @ 00:53 by Caterina Damian NP) Social History: Patient lives in assisted living [place]. He tells me he has 3 children. He tells me his but according to the records is his ex-. Smoking packs per day: 1 Smoking cigarettes per day: 20.0 Years smoked: 20 Smoking pack-years: 20.00 Smoking status: Former smoker Tobacco type: cigarettes Alcohol intake: unknown Substance use: unknown Living arrangements: assisted living Occupation/Education: retired Gender identity (if verbalized by the patient): Male Juan Jua
[2019-09-07 18:26] LABS: Source Peritoneal Fluid Peritoneal Fluid
[2019-09-07 18:27] LABS: Appearance Peritoneal Fluid Hazy (Clear); Color Peritoneal Fluid Yellow (Colorless); Lymphocytes Peritoneal Fluid 17 %; Neutrophils Peritoneal Fluid 8 % (0-25); Nucleated Cells Peritoneal Flu 185 /uL (0-500); RBC Peritoneal Fluid 1750 /uL (0-100000)
[2019-09-07 18:28] LABS: Macrophages Peritoneal Fluid 64 %; Mesothelial Cells Peritoneal Fluid 11 %
[2019-09-07 19:02] LABS: Appearance Pleural Fluid Bloody (Clear); Color Pleural Fluid Red (Colorless); Pleural fluid source Pleural fluid
[2019-09-07 19:03] LABS: Lymphocytes Pleural Fluid 45 %; Macrophages Pleural Fluid 7 %; Mesothelial Cells Pleural Flui 6 %; Neutrophils Pleural Fluid 42 % (0-25); Nucleated Cell Pleural Fluid 141 /uL (0-1000); RBC Pleural Fluid 9815 /uL (0-0)
[2019-09-07 20:36] LABS: Glucose Point of Care 170 (65-105)
[2019-09-08] VITALS (19 sets, daily range): BP systolic 128–133; BP diastolic 48–60; PULSE 62–75; RESP 18–22; TEMP 36.3–37.2; O2SAT 98–100
[2019-09-08 04:16] LABS: Hematocrit 25.7 % (42.0-52.0); Hemoglobin 8.3 g/dL (14.0-18.0); Mean Corpuscular HGB Conc 32.3 g/dl (32-36); Mean Corpuscular Hemoglobin 32.9 pg (26-34); Mean Platelet Volume 10.6 fl (7.4-10.4); Platelet Count Result 44 k/mm3 (150-375); Red Blood Count 2.52 M/mm3 (4.6-6.20); Red Cell Distribution Width 17.4 % (11.5-14.5); White Blood Count 2.6 K/mm3 (4.5-10.0)
[2019-09-08 04:27] LABS: Ammonia 14 umol/L (9-30)
[2019-09-08 04:28] LABS: Alanine Aminotransferase 23 U/L (4-50); Albumin Level 2.1 g/dL (3.5-5.1); Alkaline Phosphatase 75 U/L (38-126); Aspartate Amino Transferase 33 U/L (17-59); Bilirubin,Total 1.5 mg/dL (0.2-1.3); Blood Urea Nitrogen 14 mg/dL (9-20); Calcium 8.1 mg/dL (8.4-10.2); Carbon Dioxide 32 mmol/L (22-30); Chloride 101 mmol/L (98-107); Estimated CRCL calculation 101 ml/min; Estimated Glomerular Filt Rate > 60; Glucose 164 mg/dL (75-110); Potassium 3.3 mmol/L (3.4-5.0); Sodium 137 mmol/L (137-145)
[2019-09-08 08:15] LABS: Glucose Point of Care 167 (65-105)
[2019-09-08] MEDS: MAGNESIUM OXIDE 400 MG TABLET PO (09:27)
[2019-09-08] MEDS: LACTULOSE 20 GM/30 ML UDC 13.3333333 GM PO ×2 (09:27→12:27)
[2019-09-08] MEDS: rifAXIMin 550 MG TABLET PO ×2 (09:28→17:30)
[2019-09-08] MEDS: POTASSIUM CHLORIDE 20 MEQ PACKET (FOR LIQUID) 40 MEQ PO (09:28)
[2019-09-08] MEDS: ASPIRIN 81 MG CHEWABLE TABLET PO (09:29)
[2019-09-08] MEDS: RANOLAZINE 500 MG TAB.ER.12H PO ×2 (09:29→20:14)
[2019-09-08] MEDS: ISOSORBIDE DINITRATE 5 MG TABLET PO ×2 (09:29→20:14)
[2019-09-08] MEDS: PREGABALIN 75 MG CAPSULE PO ×2 (09:34→20:14)
[2019-09-08 09:44] LABS: Magnesium 1.5 mg/dL (1.6-2.3)
--- NOTE | 2019-09-08 11:47 | WPDGIPROGNO ---
Progress Note: A&P Assessment and Plan (1) Ascites: Qualifiers: Ascites type: other type Qualified Code(s): R18.8 - Other ascites Code(s): R18.8 - Other ascites Status: Acute Assessment and Plan: no SBP, continue with diuretic and 2g na diet. (2) Acute hepatic encephalopathy: Code(s): K72.00 - Acute and subacute hepatic failure without coma Status: Acute Assessment and Plan: on lactulose and xifaxan, titrate lactulose for 3-4 BM day (3) Non-alcoholic cirrhosis: Code(s): K74.60 - Unspecified cirrhosis of liver Status: Chronic (4) Anasarca: Code(s): R60.1 - Generalized edema Status: Acute (5) Pneumonia: Qualifiers: Laterality: bilateral Lung location: lower lobe of lung Pneumonia type: due to unspecified organism Qualified Code(s): J18.9 - Pneumonia, unspecified organism Code(s): J18.9 - Pneumonia, unspecified organism Status: Acute (6) Pleural effusion: Code(s): J90 - Pleural effusion, not elsewhere classified Status: Acute Assessment and Plan: 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 Avoid the use of chest tube placement even if refractory effusion. (7) Myelodysplastic syndrome: Code(s): D46.9 - Myelodysplastic syndrome, unspecified Status: Chronic Subjective Date/time seen: 09/08/19 11:47 Interval history: he had both paracentesis and thoracentesis, no major changes. He had breakfast, still some confusion Review of Systems Review of Systems: ROS unobtainable: unobtainable due to mental condition Exam Const: Other: wheezing, looks chronically ill HENMT: General nose exam: Normal nares present Eyes: EOM: EOMs intact bilaterally Neck: Neck: supple Resp: Auscultation: rales, rhonchi and wheezes Cardio: Rate: regular rate GI: GI Palp: No abdominal tenderness and Yes Ascites present Auscultation: normal bowel sounds Neuro: Other: confusion, he is following commands but can not tell details Extrem: Left upper extremity: edema Right lower extremity: edema Psych: Affect: Anxious affect present Objective Data Vital Signs Vital Signs: Vital Signs - 24 hr 09/07/19 12:00 09/07/19 12:01 09/07/19 14:48 Temperature 98.3 F Pulse Rate 80 76 72 Respiratory Rate 21 H Blood Pressure 121/59 L Pulse Oximetry 93 09/07/19 14:51 09/07/19 14:58 09/07/19 15:02 Temperature 99.1 F 98.9 F 99.1 F Pulse Rate 70 70 70 Respiratory Rate 24 H 20 Blood Pressure 141/58 H 138/59 L 143/57 H Pulse Oximetry 99 98 99 09/07/19 15:07 09/07/19 15:42 09/07/19 16:00 Temperature 99.2 F Pulse Rate 71 70 72 Respiratory Rate 20 28 H Blood Pressure 137/58 L 147/59 H Pulse Oximetry 99 99 09/07/19 16:22 09/07/19 17:05 09/07/19 17:12 Temperature 99.2 F Pulse Rate 72 70 74 Respiratory Rate 30 H 28 H 24 H Blood Pressure 138/58 L 147/59 H 134/49 L Pulse Oximetry 93 99 94 09/07/19 18:13 09/07/19 19:17 09/07/19 20:00 Temperature 99.1 F Pulse Rate 73 76 75 Respiratory Rate 24 H Blood Pressure 130/46 L Pulse Oximetry 100 09/07/19 22:00 09/07/19 23:30 09/08/19 00:00 Temperature 99.4 F Pulse Rate 72 72 72 Respiratory Rate 24 H Blood Pressure 138/52 L Pulse Oximetry 95 09/08/19 02:00 09/08/19 03:41 09/08/19 04:00 Temperature 98.3 F Pulse Rate 71 72 71 Respiratory Rate 22 H Blood Pressure 129/48 L Pulse Oximetry 98 09/08/19 06:00 09/08/19 08:00 09/08/19 10:00 Temperature 98.9 F Pulse Rate 62 65 66 Respiratory Rate 20 Blood Pressure 128/50 L Pulse Oximetry 98 Intake/Output Intake/Output: Intake & Output 09/05/19 09/06/19 09/07/19 09/08/19 23:59 23:59 23:59 23:59 Intake Total 400 2011 1140 Output Total 375 4150 600 Balance 13 -6077 540 Meds/Results Medications: Active Medications Generic Name Dose Route Start Last A
[2019-09-08] MEDS: CYANOCOBALAMIN 1,000 MCG TABLET 2000 MCG PO (12:27)
[2019-09-08] MEDS: MAGNESIUM SULF 2 GM/WATER 50ML 2 GM/50 ML BAG IVPB (12:51)
[2019-09-08 13:44] LABS: Glucose Point of Care 172 (65-105)
--- NOTE | 2019-09-08 14:24 | WPDONCPN ---
Objective Data Vital Signs Vital Signs: Vital Signs - 24 hr 09/07/19 14:48 09/07/19 14:51 09/07/19 14:58 Temperature 37.3 C 37.2 C Pulse Rate 72 70 70 Respiratory Rate 24 H Blood Pressure 141/58 H 138/59 L Pulse Oximetry 99 98 09/07/19 15:02 09/07/19 15:07 09/07/19 15:42 Temperature 37.3 C 37.3 C Pulse Rate 70 71 70 Respiratory Rate 20 20 28 H Blood Pressure 143/57 H 137/58 L 147/59 H Pulse Oximetry 99 99 99 09/07/19 16:00 09/07/19 16:22 09/07/19 17:05 Temperature Pulse Rate 72 72 70 Respiratory Rate 30 H 28 H Blood Pressure 138/58 L 147/59 H Pulse Oximetry 93 99 09/07/19 17:12 09/07/19 18:13 09/07/19 19:17 Temperature 37.3 C 37.3 C Pulse Rate 74 73 76 Respiratory Rate 24 H 24 H Blood Pressure 134/49 L 130/46 L Pulse Oximetry 94 100 09/07/19 20:00 09/07/19 22:00 09/07/19 23:30 Temperature 37.4 C Pulse Rate 75 72 72 Respiratory Rate 24 H Blood Pressure 138/52 L Pulse Oximetry 95 09/08/19 00:00 09/08/19 02:00 09/08/19 03:41 Temperature 36.8 C Pulse Rate 72 71 72 Respiratory Rate 22 H Blood Pressure 129/48 L Pulse Oximetry 98 09/08/19 04:00 09/08/19 06:00 09/08/19 08:00 Temperature 37.2 C Pulse Rate 71 62 65 Respiratory Rate 20 Blood Pressure 128/50 L Pulse Oximetry 98 09/08/19 10:00 09/08/19 11:50 09/08/19 14:00 Temperature 36.8 C Pulse Rate 66 62 64 Respiratory Rate 20 Blood Pressure Pulse Oximetry 99 09/08/19 14:05 Temperature Pulse Rate 64 Respiratory Rate Blood Pressure Pulse Oximetry 100 Intake/Output Intake/Output: Intake & Output 09/05/19 09/06/19 09/07/19 09/08/19 23:59 23:59 23:59 23:59 Intake Total 400 2011 1190 Output Total 375 4150 600 Balance 27 -5438 090 Meds/Results Medications: Active Medications Generic Name Dose Route Start Last Admin Trade Name Freq PRN Reason Stop Dose Admin Aspirin 81 mg 09/07/19 08:00 09/08/19 09:29 Aspirin Chewable PO 81 mg DAILY@0800 OBDULIA Administration Cyanocobalamin 2,000 mcg 09/07/19 12:00 09/08/19 12:27 Vitamin B-12 Tab PO 2,000 mcg DAILY@1200 OBDULIA Administration Dextrose 12.5 gm 09/07/19 00:22 Dextrose 50% Syringe IV PUSH PRN PRN Hypoglycemia Protocol Glucagon 1 mg 09/07/19 00:22 Glucagon For Inj IM PRN PRN Hypoglycemia Protocol Glucose 15 gm 09/07/19 00:22 Glutose 15 PO PRN PRN Hypoglycemia Protocol Heparin Sodium (Porcine) 500 units 09/07/19 09:50 Heparin Sod Flush 100 Units/Ml IV PUSH PRN PRN see comments below Dextrose 1,000 mls @ 100 mls/hr 09/07/19 00:22 Dextrose 5% 1,000 Ml IVPB PRN PRN Hypoglycemia Protocol Ceftriaxone Sodium/Dextrose 1 gm in 50 mls @ 100 mls/hr 09/07/19 18:00 09/07/19 18:21 Rocephin 1 Gm/D5w 50 Ml IVPB Infused QPM OBDULIA Infusion Insulin Aspart 2 - 5 units 09/07/19 08:00 09/08/19 11:50 Novolog SUB-Q Not Given TIDWM [facility] Protocol Isosorbide Dinitrate 5 mg 09/07/19 09:00 09/08/19 09:29 Isordil PO 5 mg Q12HR OBDULIA Administration Lactulose 3.9941076 gm 09/07/19 18:00 09/07/19 17:32 Lactulose PO 10/07/19 18:01 3.9888983 gm QPM OBDULIA Administration Lactulose 13.8285144 gm 09/07/19 08:00 09/08/19 12:27 Lactulose PO 10/07/19 08:01 13.2221888 gm 0800,1200 OBDULIA Administration Magnesium Oxide 400 mg 09/08/19 09:00 09/08/19 09:27 Mag-Ox PO 400 mg QAM OBDULIA Administration Nitroglycerin 0.4 mg 09/07/19 00:32 Nitrostat Subl 0.4 Mg (1/150) SUBLINGUAL Q5MIN PRN Chest Pain Non-Formulary Medication 50 mg 09/07/19 09:00 Thalidomide [Thalomid] PO 10/07/19 09:01 BID OBDULIA Pregabalin 75 mg 09/07/19 09:00 09/08/19 09:34 Lyrica PO 75 mg Q12HR OBDULIA Administration Ranolazine 500 mg 09/07/19 09:00 09/08/19 09:29 Ranexa PO 500 mg Q12HR OBDULIA Administration Rifaximin 550 mg 09/07/19 09:00 09/08/19 09:28
--- NOTE | 2019-09-08 14:44 | PHAR ---
HOME MEDICATION VERIFIED BY PHARMACY: THALIDOMIDE 50MG CAPSULES TAKE 2 CAPSULES QHS [id number]
--- NOTE | 2019-09-08 14:47 | PM.IMPN ---
Progress Note: A&P Assessment and Plan (1) Pleural effusion: Code(s): J90 - Pleural effusion, not elsewhere classified Status: Acute Assessment and Plan: 09/08/19 14:47Patient is 69-year-old male with history of SHEPHERD and liver failure about a cell carcinoma patient is a [facility] patient was quite somnolent and lethargic he was sent to emergency department further evaluation his ammonia level is 77 upon arrival his hepatic encephalopathy, he has ascites and pleural effusion, on 09/07 patient had a thoracentesis and 1 L was removed and patient also had paracentesis and 1450ml was removed patient does not have SBP, is ammonia level is have improved to 14 compared to when he arrived per 77 patient is more alert and cooperative today, his ex- is room answered all the question, patient denies any abdominal pain nausea or vomiting fever or chill (2) Acute hypokalemia: Code(s): E87.6 - Hypokalemia Status: Acute Assessment and Plan: Potassium was replaced on check a BMP and replace as needed. (3) Acute hepatic encephalopathy: Code(s): K72.00 - Acute and subacute hepatic failure without coma Status: Acute Assessment and Plan: Most likely secondary to SHEPHERD cirrhosis with ammonia level of 77 patient is on lactulose his ammonia level is 14 is less confused today and mentation is better will (4) Sleep apnea: Qualifiers: Sleep apnea type: unspecified type Qualified Code(s): G47.30 - Sleep apnea, unspecified Code(s): G47.30 - Sleep apnea, unspecified Status: Chronic Assessment and Plan: Titrate CPAP (5) Cirrhosis: Qualifiers: Hepatic cirrhosis type: unspecified hepatic cirrhosis Ascites presence: with ascites Qualified Code(s): K74.60 - Unspecified cirrhosis of liver; R18.8 - Other ascites Code(s): K74.60 - Unspecified cirrhosis of liver Status: Chronic Assessment and Plan: Patient is seen by Dr. Muhammad recommended to continue present management (6) Myelodysplastic syndrome: Code(s): D46.9 - Myelodysplastic syndrome, unspecified Status: Chronic Assessment and Plan: The patient has seen Dr. carmichael and had been getting routine blood transfusions. I also consulted Oncology. Patient also has thrombocytopenia, his platelets are 44 will give 1 unit of platelets before the procedure, patient is seen by prosthodontist/educator (7) Anasarca: Code(s): R60.1 - Generalized edema Status: Acute Assessment and Plan: Due to SHEPHERD. Patient appears dry and his lactic acid has been increasing. I spoke with my collaborative who agrees with 1 L fluid bolus followed by IV Lasix. Continue with patient's ex Xifaxan when he is able to take his p.o. medication. (8) Diabetes: Qualifiers: Diabetes mellitus type: type 2 Diabetes mellitus usp insulin use: with ocean transportation intermediary use Diabetes mellitus complication status: without complication Qualified Code(s): E11.9 - Type 2 diabetes mellitus without complications; Z79.4 - half-way (current) use of insulin Code(s): E11.9 - Type 2 diabetes mellitus without complications Status: Chronic Assessment and Plan: Accu-Cheks AC and HS. Additional Plan Anemia of chronic disease. Continue to monitor the patient looks like he is at his baseline. Hyperlipidemia I am holding his atorvastatin. I am holding all of his medications at this time as the patient is lethargic. Subjective Date/time seen: 09/08/19 14:47Patient is 69-year-old male with history of SHEPHERD and liver failure about a cell carcinoma patient is a [facility] patient was quite somnolent and lethargic he was sent to emergency department further evaluation his ammonia level is 77 upon arrival his hepatic encephalopathy, he has ascites and pleural effusion, on 09/07 patient had a thoracentesis and 1 L was removed and patient also had paracentesis and 1450ml was r
--- NOTE | 2019-09-08 14:58 | PC.NURSE ---
On 09/08/19, the student, [NAIF THOMPSON ], provided care and [facility]. I have reviewed the student's documentation and agree with the findings.
[2019-09-08 16:50] LABS: Glucose Point of Care 198 (65-105)
[2019-09-08] MEDS: LACTULOSE 20 GM/30 ML UDC 3.3333333 GM PO (17:30)
[2019-09-08 20:24] LABS: Glucose Point of Care 205 (65-105)
[2019-09-09] VITALS (16 sets, daily range): BP systolic 108–130; BP diastolic 41–55; PULSE 57–75; RESP 18–22; TEMP 36.4–37; O2SAT 94–98
--- NOTE | 2019-09-09 | ECHOL_ITS ---
Patient Info Name: Benny Ryder Age: 69 years : 1950 Gender: Male Ht: 74 in Wt: 322 lbs BSA: 2.82 m2 HR: 62 bpm BP: 116 / 42 mmHg Heart Rhythm: Bradycardia Technical Quality: Good Exam Date: 09/09/2019 2:49 PM Exam Location: [facility] Patient Status: Inpatient Admit Date: 09/06/2019 Staff Ordering Physician: Tanisha Mercedes MD Advanced Quality Engineer: Quan Hahn RDCS Attending Provider: Simone Jovel MD Exam Type: CA echo limited Study Info Indications 486.0 - Pneumonia Limited two-dimensional transthoracic echocardiogram is performed. History/Risk Factors Sepsis w/ concern for endocarditis. Summary 1. Limited echo to check for endocarditis. 2. Left ventricular chamber dimension is normal. 3. Left ventricular systolic function is normal, estimated at 60-65%. 4. There is mild aortic valve sclerosis. 5. Mild mitral annular calcification. 6. Calcified chordae tendinae connecting to posterior mitral valve leaflet. 7. There is trace mitral valve regurgitation. 8. There is trace tricuspid valve regurgitation. Left Ventricle Diastolic function is not assessed. Limited echo to check for endocarditis. Left ventricular chamber dimension is normal. Left ventricular systolic function is normal, estimated at 60-65%. Right Ventricle Right ventricular chamber dimension is normal. Right ventricular systolic function is normal. Left Atria Left atrial chamber dimension is normal. Right Atria Right atrial chamber dimension is normal. Aortic Valve The aortic valve is trileaflet. There is mild aortic valve sclerosis. There is no aortic valve stenosis. There is no aortic valve regurgitation. No aortic valve vegetation visualized. Pulmonic Valve There is no pulmonic regurgitation. No pulmonic valve vegetation visualized. Mitral Valve Mild mitral annular calcification. Calcified chordae tendinae connecting to posterior mitral valve leaflet. There is no mitral valve stenosis. There is trace mitral valve regurgitation. No mitral valve vegetation visualized. Tricuspid Valve RVSP is not measured or calcuated. There is trace tricuspid valve regurgitation. No tricuspid valve vegetation visualized. Pericardium/Pleural There is no pericardial effusion. Aorta The aortic root size at the sinus of Valsalva is normal. Ventricles Name Value Normal LV Fractional Shortening/Ejection Fraction 2D/MM LV Diastolic Volume (4C MOD) 118 ml LV EF (4C MOD) 61 % LV Diastolic Length (4C) 9.8 cm LV Systolic Length (4C) 8.4 cm LV Stroke Volume (4C MOD) 72 ml Report Signatures
[2019-09-09 05:23] LABS: Hematocrit 26.1 % (42.0-52.0); Hemoglobin 8.5 g/dL (14.0-18.0); Immature Platelet Fraction Pct 2.1 % (0.9-11.2); Mean Corpuscular HGB Conc 32.6 g/dl (32-36); Mean Corpuscular Hemoglobin 33.3 pg (26-34); Mean Corpuscular Volume 102.4 fl (80-100); Mean Platelet Volume 10.6 fl (7.4-10.4); Platelet Count Result 40 k/mm3 (150-375); Red Blood Count 2.55 M/mm3 (4.6-6.20); Red Cell Distribution Width 17.1 % (11.5-14.5)
[2019-09-09 05:27] LABS: White Blood Count 1.9 K/mm3 (4.5-10.0)
[2019-09-09 05:28] LABS: Ammonia 32 umol/L (9-30)
[2019-09-09 05:30] LABS: Alanine Aminotransferase 20 U/L (4-50); Albumin Level 2.1 g/dL (3.5-5.1); Alkaline Phosphatase 77 U/L (38-126); Aspartate Amino Transferase 30 U/L (17-59); Bilirubin,Total 1.4 mg/dL (0.2-1.3); Blood Urea Nitrogen 14 mg/dL (9-20); Calcium 8.2 mg/dL (8.4-10.2); Carbon Dioxide 32 mmol/L (22-30); Chloride 100 mmol/L (98-107); Estimated CRCL calculation 113 ml/min; Estimated Glomerular Filt Rate > 60; Glucose 178 mg/dL (75-110); Potassium 3.5 mmol/L (3.4-5.0); Sodium 136 mmol/L (137-145)
[2019-09-09] MEDS: rifAXIMin 550 MG TABLET PO ×2 (08:00→16:39)
[2019-09-09] MEDS: RANOLAZINE 500 MG TAB.ER.12H PO ×2 (08:00→20:33)
[2019-09-09] MEDS: ASPIRIN 81 MG CHEWABLE TABLET PO (08:00)
[2019-09-09] MEDS: LACTULOSE 20 GM/30 ML UDC 13.3333333 GM PO ×2 (08:00→12:20)
[2019-09-09] MEDS: ISOSORBIDE DINITRATE 5 MG TABLET PO ×2 (08:00→20:33)
[2019-09-09] MEDS: PREGABALIN 75 MG CAPSULE PO ×2 (08:00→20:33)
[2019-09-09] MEDS: MAGNESIUM OXIDE 400 MG TABLET PO (08:00)
--- NOTE | 2019-09-09 08:00 | WPDCDIQUERY2 ---
CDI Query Clarification Request -Both blood cultures from 09/06 growing Klebsiella Pneumonia -Patient on arrival with T100, P110, RR 24, and lactic acid 2.4 -EDP documented pneumonia and UTI (urine culture negative) Please clarify if there is any clinical significance to two positive blood cultures. <Radha Christianson RN - Last Filed: 09/09/19 08:06>
[2019-09-09 08:15] LABS: Glucose Point of Care 174 (65-105)
[2019-09-09 10:28] LABS: Amylase, Pleural Fluid 21 U/L
[2019-09-09 10:28] LABS: Magnesium 1.6 mg/dL (1.6-2.3)
--- NOTE | 2019-09-09 11:13 | PCPTNOTE ---
Attempted PT eval. Pt working w/OT. Will try again at later time.
[2019-09-09 11:22] LABS: Glucose Peritoneal Fluid 192 mg/dL; LDH Peritoneal Fluid 43 U/L (<63); Total Protein Peritoneal Fluid <3.0 g/dL
[2019-09-09] MEDS: CYANOCOBALAMIN 1,000 MCG TABLET 2000 MCG PO (12:20)
[2019-09-09] MEDS: INSULIN ASPART (*BKC) 100 UNITS/ML SUB-Q ×2 (12:22→16:39)
[2019-09-09 12:47] LABS: Glucose Point of Care 215 (65-105)
--- NOTE | 2019-09-09 16:13 | WPDONCPN ---
Objective Data Vital Signs Vital Signs: Vital Signs - 24 hr 09/08/19 16:39 09/08/19 18:00 09/08/19 19:35 Temperature 36.9 C 36.3 C L Pulse Rate 65 67 65 Respiratory Rate 22 H 18 Blood Pressure 130/54 L 133/60 Pulse Oximetry 99 99 09/08/19 20:00 09/08/19 21:49 09/08/19 22:00 Temperature Pulse Rate 75 67 65 Respiratory Rate 18 Blood Pressure Pulse Oximetry 98 09/09/19 00:00 09/09/19 02:00 09/09/19 04:00 Temperature 36.4 C L Pulse Rate 70 59 L 57 L Respiratory Rate 20 Blood Pressure 108/44 L Pulse Oximetry 98 09/09/19 08:00 09/09/19 10:00 09/09/19 12:00 Temperature 36.6 C 36.5 C Pulse Rate 59 L 61 63 Respiratory Rate 20 20 Blood Pressure 116/42 L 130/55 L Pulse Oximetry 95 98 09/09/19 14:00 09/09/19 15:45 09/09/19 16:00 Temperature 36.6 C Pulse Rate 58 L 61 68 Respiratory Rate 18 Blood Pressure 124/52 L Pulse Oximetry 96 Intake/Output Intake/Output: Intake & Output 09/06/19 09/07/19 09/08/19 09/09/19 23:59 23:59 23:59 23:59 Intake Total 400 2011 1680 740 Output Total 375 4150 1025 550 Balance 04 -4498 048 190 Meds/Results Medications: Active Medications Generic Name Dose Route Start Last Admin Trade Name Freq PRN Reason Stop Dose Admin Aspirin 81 mg 09/07/19 08:00 09/09/19 08:00 Aspirin Chewable PO 81 mg DAILY@0800 [facility] Administration Cyanocobalamin 2,000 mcg 09/07/19 12:00 09/09/19 12:20 Vitamin B-12 Tab PO 2,000 mcg DAILY@1200 [facility] Administration Dextrose 12.5 gm 09/07/19 00:22 Dextrose 50% Syringe IV PUSH PRN PRN Hypoglycemia Protocol Glucagon 1 mg 09/07/19 00:22 Glucagon For Inj IM PRN PRN Hypoglycemia Protocol Glucose 15 gm 09/07/19 00:22 Glutose 15 PO PRN PRN Hypoglycemia Protocol Heparin Sodium (Porcine) 500 units 09/07/19 09:50 Heparin Sod Flush 100 Units/Ml IV PUSH PRN PRN see comments below Dextrose 1,000 mls @ 100 mls/hr 09/07/19 00:22 Dextrose 5% 1,000 Ml IVPB PRN PRN Hypoglycemia Protocol Ceftriaxone Sodium/Dextrose 1 gm in 50 mls @ 100 mls/hr 09/07/19 18:00 09/08/19 18:05 Rocephin 1 Gm/D5w 50 Ml IVPB Infused QPM [facility]BD[facility] Infusion Insulin Aspart 2 - 5 units 09/07/19 08:00 09/09/19 12:22 Novolog SUB-Q 2 units TIDWM [facility]BD[facility] Administration Protocol Isosorbide Dinitrate 5 mg 09/07/19 09:00 09/09/19 08:00 Isordil PO 5 mg Q12HR [facility]BD[facility] Administration Lactulose 3.9502794 gm 09/07/19 18:00 09/08/19 17:30 Lactulose PO 10/07/19 18:01 3.3367419 gm QPM [facility]BD[facility] Administration Lactulose 13.5750159 gm 09/07/19 08:00 09/09/19 12:20 Lactulose PO 10/07/19 08:01 13.9173848 gm 0800,1200 [facility] Administration Magnesium Oxide 400 mg 09/08/19 09:00 09/09/19 08:00 Mag-Ox PO 400 mg QAM [facility]BD[facility] Administration Nitroglycerin 0.4 mg 09/07/19 00:32 Nitrostat Subl 0.4 Mg (1/150) SUBLINGUAL Q5MIN PRN Chest Pain Pregabalin 75 mg 09/07/19 09:00 09/09/19 08:00 Lyrica PO 75 mg Q12HR [facility]BD[facility] Administration Ranolazine 500 mg 09/07/19 09:00 09/09/19 08:00 Ranexa PO 500 mg Q12HR [facility] Administration Rifaximin 550 mg 09/07/19 09:00 09/09/19 08:00 Xifaxan PO 550 mg BID OBD[facility] Administration Radiology Results: ITS Impressions Chest CT 09/06/19 21:41 IMPRESSION: 1. Large right pleural effusion with adjacent compressive atelectasis. 2. Hepatosplenomegaly, cirrhosis, ascites. Head CT 09/06/19 22:02 IMPRESSION: 1. No acute intracranial findings. 2. Chronic age related findings. Chest X-Ray 09/07/19 17:05 IMPRESSION: 1. Interval decrease in size of right pleural effusion postthoracentesis without pneumothorax. 2. Stable cardiomegaly. 3. Airspace opacities of the right mid and lower lung zones, likely passive atelectasis. Venous Doppler Study 09/07/19 17:05 IMPRESSION: 1. No lower extremity deep venous throm
[2019-09-09] MEDS: LACTULOSE 20 GM/30 ML UDC 3.3333333 GM PO (16:38)
[2019-09-09 16:46] LABS: Glucose Point of Care 222 (65-105)
--- NOTE | 2019-09-09 17:02 | PM.IMPN ---
Progress Note: A&P Assessment and Plan (1) Pleural effusion: Code(s): J90 - Pleural effusion, not elsewhere classified Status: Acute Assessment and Plan: Patient is 69-year-old male with history of SHEPHERD and liver failure about a cell carcinoma patient is a resident of care home patient was quite somnolent and lethargic he was sent to emergency department further evaluation his ammonia level is 77 upon arrival his hepatic encephalopathy, he has ascites and pleural effusion, on 09/07 patient had a thoracentesis and 1 L was removed and patient also had paracentesis and 1450ml was removed patient does not have SBP, is ammonia level is have improved to on 09/08 14 compared to when he arrived per 77 today its 32, patient is more alert and cooperative today, his ex- is room answered all the question, Patient is blood culture is growing Klebsiella pneumonia sensitive to Rocephin patient denies any abdominal pain nausea or vomiting fever or chill (2) Acute hypokalemia: Code(s): E87.6 - Hypokalemia Status: Acute Assessment and Plan: Potassium was replaced on check a BMP and replace as needed. (3) Acute hepatic encephalopathy: Code(s): K72.00 - Acute and subacute hepatic failure without coma Status: Acute Assessment and Plan: Most likely secondary to SHEPHERD cirrhosis with ammonia level of 77 patient is on lactulose his ammonia level is 14 is less confused today and mentation is better will (4) Sleep apnea: Qualifiers: Sleep apnea type: unspecified type Qualified Code(s): G47.30 - Sleep apnea, unspecified Code(s): G47.30 - Sleep apnea, unspecified Status: Chronic Assessment and Plan: Titrate CPAP (5) Cirrhosis: Qualifiers: Ascites presence: with ascites Hepatic cirrhosis type: unspecified hepatic cirrhosis Qualified Code(s): K74.60 - Unspecified cirrhosis of liver; R18.8 - Other ascites Code(s): K74.60 - Unspecified cirrhosis of liver Status: Chronic Assessment and Plan: Patient is seen by Dr. Muhammad recommended to continue present management (6) Myelodysplastic syndrome: Code(s): D46.9 - Myelodysplastic syndrome, unspecified Status: Chronic Assessment and Plan: The patient has seen Dr. carmichael and had been getting routine blood transfusions. I also consulted Oncology. Patient also has thrombocytopenia, his platelets are 44 will give 1 unit of platelets before the procedure, patient is seen by masonry teacher (7) Anasarca: Code(s): R60.1 - Generalized edema Status: Acute Assessment and Plan: Due to SHEPHERD. Patient appears dry and his lactic acid has been increasing. I spoke with my collaborative who agrees with 1 L fluid bolus followed by IV Lasix. Continue with patient's ex Xifaxan when he is able to take his p.o. medication. (8) Diabetes: Qualifiers: Diabetes mellitus complication status: without complication Diabetes mellitus exterminator insulin use: with nursing home use Diabetes mellitus type: type 2 Qualified Code(s): E11.9 - Type 2 diabetes mellitus without complications; Z79.4 - exterminator (current) use of insulin Code(s): E11.9 - Type 2 diabetes mellitus without complications Status: Chronic Assessment and Plan: Accu-Cheks AC and HS. (9) Sepsis: Code(s): A41.9 - Sepsis, unspecified organism Status: Acute Assessment and Plan: Patient with criteria with fever elevated lactic acid tachycardia tachypnea blood cultures growing Klebsiella pneumonia most likely pneumonia as well as UTI patient being treated with cefotaxime clinically stable will continue to monitor Additional Plan Anemia of chronic disease. Continue to monitor the patient looks like he is at his baseline. Hyperlipidemia I am holding his atorvastatin. I am holding all of his medications at this time as the patient is lethargic. Subjective Date/time seen: 09/09
[2019-09-09 18:48] LABS: Albumin Peritoneal Fluid 0.3 g/dL
[2019-09-09 20:24] LABS: Glucose Point of Care 185 (65-105)
[2019-09-09 21:21] LABS: Glucose Pleural Fluid 199 mg/dL; LDH Pleural Fluid 84 U/L; Total Protein Pleural Fluid <3.0 g/dL
[2019-09-10] VITALS (13 sets, daily range): BP systolic 94–142; BP diastolic 44–70; PULSE 60–71; RESP 14–22; TEMP 36.3–36.9; O2SAT 93–98
[2019-09-10 06:03] LABS: Hemoglobin 9.9 g/dL (14.0-18.0); Mean Platelet Volume 10.9 fl (7.4-10.4); Platelet Count Result 61 k/mm3 (150-375); Red Cell Distribution Width 16.2 % (11.5-14.5); White Blood Count 2.5 K/mm3 (4.5-10.0)
[2019-09-10 06:06] LABS: Ammonia 21 umol/L (9-30)
[2019-09-10 06:14] LABS: Alanine Aminotransferase 24 U/L (4-50); Albumin Level 2.4 g/dL (3.5-5.1); Alkaline Phosphatase 93 U/L (38-126); Aspartate Amino Transferase 37 U/L (17-59); Bilirubin,Total 1.6 mg/dL (0.2-1.3); Blood Urea Nitrogen 12 mg/dL (9-20); Calcium 8.6 mg/dL (8.4-10.2); Carbon Dioxide 31 mmol/L (22-30); Chloride 98 mmol/L (98-107); Estimated CRCL calculation 112 ml/min; Estimated Glomerular Filt Rate > 60; Glucose 157 mg/dL (75-110); Magnesium 1.7 mg/dL (1.6-2.3); Potassium 3.6 mmol/L (3.4-5.0); Sodium 134 mmol/L (137-145)
[2019-09-10 07:52] LABS: Glucose Point of Care 153 (65-105)
[2019-09-10] MEDS: LACTULOSE 20 GM/30 ML UDC 13.3333333 GM PO ×2 (09:18→15:09)
[2019-09-10] MEDS: CYANOCOBALAMIN 1,000 MCG TABLET 2000 MCG PO (09:19)
[2019-09-10] MEDS: PREGABALIN 75 MG CAPSULE PO ×2 (09:20→21:14)
[2019-09-10] MEDS: MAGNESIUM OXIDE 400 MG TABLET PO (09:20)
[2019-09-10] MEDS: rifAXIMin 550 MG TABLET PO ×2 (09:20→18:32)
[2019-09-10] MEDS: ISOSORBIDE DINITRATE 5 MG TABLET PO ×2 (09:20→21:14)
[2019-09-10] MEDS: RANOLAZINE 500 MG TAB.ER.12H PO ×2 (09:20→21:15)
[2019-09-10] MEDS: ASPIRIN 81 MG CHEWABLE TABLET PO (09:20)
[2019-09-10 11:03] LABS: Amylase Peritoneal Fluid <10 U/L
--- NOTE | 2019-09-10 12:22 | WPDGIPROGNO ---
Progress Note: A&P Assessment and Plan (1) Non-alcoholic cirrhosis: Code(s): K74.60 - Unspecified cirrhosis of liver Status: Chronic Assessment and Plan: continue medical management and support, he has been treated in the past for HCC with ablation. (2) Ascites: Qualifiers: Ascites type: other type Qualified Code(s): R18.8 - Other ascites Code(s): R18.8 - Other ascites Status: Acute Assessment and Plan: will resume diuretics, low dose and monitor renal function/lytes, 2g na diet (3) Bacteremia: Code(s): R78.81 - Bacteremia Status: Acute Assessment and Plan: Klebsiella pneumonia on iv abx, monitor (4) Thrombocytopenia: Code(s): D69.6 - Thrombocytopenia, unspecified Status: Acute Assessment and Plan: chronic, multifactorial (cirrhosis, MDS) (5) Anasarca: Code(s): R60.1 - Generalized edema Status: Acute (6) Pleural effusion: Code(s): J90 - Pleural effusion, not elsewhere classified Status: Acute (7) Pneumonia: Qualifiers: Laterality: bilateral Lung location: lower lobe of lung Pneumonia type: due to unspecified organism Qualified Code(s): J18.9 - Pneumonia, unspecified organism Code(s): J18.9 - Pneumonia, unspecified organism Status: Acute (8) Myelodysplastic syndrome: Code(s): D46.9 - Myelodysplastic syndrome, unspecified Status: Chronic (9) Acute hepatic encephalopathy: Code(s): K72.00 - Acute and subacute hepatic failure without coma Status: Acute Assessment and Plan: better with lactulose and xifaxan. Subjective Date/time seen: 09/10/19 12:22 Interval history: no new changes and seems more alert, blood culture is growing Klebsiella pneumonia sensitive to Rocephin and he is on iv abx, Review of Systems Review of Systems: All systems reviewed & are unremarkable except as noted in HPI and below Exam Const: Other: wheezing, looks chronically ill HENMT: General nose exam: Normal nares present Eyes: EOM: EOMs intact bilaterally Neck: Neck: supple Resp: Effort & Inspection: normal respiratory effort Auscultation: diminished lung sounds Cardio: Rate: regular rate GI: GI Palp: No abdominal tenderness and Yes Ascites present Auscultation: normal bowel sounds Neuro: Other: confusion, he is following commands but can not tell details Extrem: Left upper extremity: edema Right lower extremity: edema Psych: Affect: Anxious affect present Objective Data Vital Signs Vital Signs: Vital Signs - 24 hr 09/09/19 14:00 09/09/19 15:45 09/09/19 16:00 Temperature 98 F Pulse Rate 58 L 61 68 Respiratory Rate 18 Blood Pressure 124/52 L Pulse Oximetry 96 09/09/19 18:00 09/09/19 19:01 09/09/19 20:00 Temperature 98.6 F Pulse Rate 60 61 60 Respiratory Rate 22 H Blood Pressure 123/41 L Pulse Oximetry 96 09/09/19 21:05 09/09/19 22:00 09/09/19 22:04 Temperature Pulse Rate 61 64 Respiratory Rate 18 Blood Pressure Pulse Oximetry 97 94 09/09/19 23:20 09/10/19 00:00 09/10/19 02:00 Temperature 98.5 F Pulse Rate 62 61 64 Respiratory Rate 20 Blood Pressure 119/50 L Pulse Oximetry 96 09/10/19 04:00 09/10/19 06:00 09/10/19 08:00 Temperature 97.8 F Pulse Rate 71 61 70 Respiratory Rate 14 16 Blood Pressure 142/64 H 126/44 L Pulse Oximetry 94 94 09/10/19 10:00 09/10/19 11:56 Temperature 97.4 F L Pulse Rate 70 63 Respiratory Rate 16 Blood Pressure 128/54 L Pulse Oximetry 98 Intake/Output Intake/Output: Intake & Output 09/07/19 09/08/19 09/09/19 09/10/19 23:59 23:59 23:59 23:59 Intake Total 2010 1680 790 240 Output Total 4150 1025 1000 475 [facility]2139 655 -210 -235 Meds/Results Medications: Active Medications Generic Name Dose Route Start Last Admin Trade Name Freq PRN Reason Stop Dose Admin Aspirin 81 mg 09/07/19 08:00 09/10/19 09:20 As
[2019-09-10 12:33] LABS: Glucose Point of Care 212 (65-105)
[2019-09-10] MEDS: FUROSEMIDE 20 MG TABLET PO (15:10)
[2019-09-10] MEDS: SPIRONOLACTONE 50 MG TABLET PO (15:10)
[2019-09-10] MEDS: INSULIN ASPART (*BKC) 100 UNITS/ML SUB-Q ×2 (15:12→18:34)
[2019-09-10 15:13] LABS: Glucose Point of Care 245 (65-105)
[2019-09-10 18:05] LABS: Glucose Point of Care 236 (65-105)
--- NOTE | 2019-09-10 18:10 | PM.IMPN ---
Progress Note: A&P Assessment and Plan (1) Pleural effusion: Code(s): J90 - Pleural effusion, not elsewhere classified Status: Acute Assessment and Plan: 09/10/19 18:10Patient is 69-year-old male with history of SHEPHERD and liver failure about a cell carcinoma patient is a [facility] patient was quite somnolent and lethargic he was sent to emergency department further evaluation his ammonia level is 77 upon arrival his hepatic encephalopathy, he has ascites and pleural effusion, on 09/07 patient had a thoracentesis and 1 L was removed and patient also had paracentesis and 1450ml was removed patient does not have SBP, is ammonia level is have improved to on 09/08 14 compared to when he arrived per 77 today its 32, patient is more alert and cooperative today, Patient is blood culture is growing Klebsiella pneumonia sensitive to Rocephin patient denies any abdominal pain nausea or vomiting fever or chill, will consult Dr. Willis for further recommendation, patient is seen by GI and order spironolactone and Lasix, (2) Acute hypokalemia: Code(s): E87.6 - Hypokalemia Status: Acute Assessment and Plan: Potassium was replaced on check a BMP and replace as needed. (3) Acute hepatic encephalopathy: Code(s): K72.00 - Acute and subacute hepatic failure without coma Status: Acute Assessment and Plan: Most likely secondary to SHEPHERD cirrhosis with ammonia level of 77 patient is on lactulose his ammonia level is down is less confused today and mentation is better will (4) Sleep apnea: Qualifiers: Sleep apnea type: unspecified type Qualified Code(s): G47.30 - Sleep apnea, unspecified Code(s): G47.30 - Sleep apnea, unspecified Status: Chronic Assessment and Plan: Titrate CPAP (5) Cirrhosis: Qualifiers: Hepatic cirrhosis type: unspecified hepatic cirrhosis Ascites presence: with ascites Qualified Code(s): K74.60 - Unspecified cirrhosis of liver; R18.8 - Other ascites Code(s): K74.60 - Unspecified cirrhosis of liver Status: Chronic Assessment and Plan: Patient is seen by Dr. Muhammad recommended to continue present management added spironolactone and Lasix to diurese the patient (6) Myelodysplastic syndrome: Code(s): D46.9 - Myelodysplastic syndrome, unspecified Status: Chronic Assessment and Plan: The patient has seen Dr. carmichael and had been getting routine blood transfusions. I also consulted Oncology. Patient also has thrombocytopenia, his platelets are 44 will give 1 unit of platelets before the procedure, patient is seen by production ski repairer (7) Anasarca: Code(s): R60.1 - Generalized edema Status: Acute Assessment and Plan: Due to SHEPHERD. Patient appears dry and his lactic acid has been increasing. I spoke with my collaborative who agrees with 1 L fluid bolus followed by IV Lasix. Continue with patient's ex Xifaxan when he is able to take his p.o. medication. Today added spironolactone and Lasix (8) Diabetes: Qualifiers: Diabetes mellitus type: type 2 Diabetes mellitus prison insulin use: with vermin exterminator use Diabetes mellitus complication status: without complication Qualified Code(s): E11.9 - Type 2 diabetes mellitus without complications; Z79.4 - intermediate project manager (current) use of insulin Code(s): E11.9 - Type 2 diabetes mellitus without complications Status: Chronic Assessment and Plan: Accu-Cheks AC and HS. (9) Sepsis: Code(s): A41.9 - Sepsis, unspecified organism Status: Acute Assessment and Plan: Patient with criteria with fever elevated lactic acid tachycardia tachypnea blood cultures growing Klebsiella pneumonia most likely pneumonia as well as UTI patient being treated with cefotaxime clinically stable will continue to monitor Additional Plan Anemia of chronic disease. Continue to monitor the patient looks like he is a
[2019-09-10] MEDS: LACTULOSE 20 GM/30 ML UDC 3.3333333 GM PO (18:29)
[2019-09-10 20:12] LABS: Albumin Pleural Fluid 0.7 g/dL
[2019-09-10 20:40] LABS: Glucose Point of Care 218 (65-105)
[2019-09-11] VITALS (15 sets, daily range): BP systolic 115–136; BP diastolic 43–54; PULSE 14–82; RESP 13–57; TEMP 35.9–37.1; O2SAT 97–100
[2019-09-11 05:29] LABS: Alanine Aminotransferase 22 U/L (4-50); Albumin Level 2.2 g/dL (3.5-5.1); Alkaline Phosphatase 88 U/L (38-126); Aspartate Amino Transferase 36 U/L (17-59); Bilirubin,Total 1.2 mg/dL (0.2-1.3); Blood Urea Nitrogen 10 mg/dL (9-20); Calcium 8.3 mg/dL (8.4-10.2); Carbon Dioxide 31 mmol/L (22-30); Chloride 98 mmol/L (98-107); Estimated CRCL calculation 111 ml/min; Estimated Glomerular Filt Rate > 60; Glucose 176 mg/dL (75-110); Magnesium 1.7 mg/dL (1.6-2.3); Potassium 3.4 mmol/L (3.4-5.0); Sodium 134 mmol/L (137-145)
[2019-09-11 05:31] LABS: Hematocrit 26.7 % (42.0-52.0); Hemoglobin 8.7 g/dL (14.0-18.0); Mean Corpuscular HGB Conc 32.6 g/dl (32-36); Mean Corpuscular Hemoglobin 33.3 pg (26-34); Mean Corpuscular Volume 102.3 fl (80-100); Mean Platelet Volume 10.2 fl (7.4-10.4); Platelet Count Result 47 k/mm3 (150-375); Red Blood Count 2.61 M/mm3 (4.6-6.20); Red Cell Distribution Width 16.6 % (11.5-14.5)
[2019-09-11 05:55] LABS: Ammonia 32 umol/L (9-30)
[2019-09-11 08:07] LABS: Glucose Point of Care 204 (65-105)
--- NOTE | 2019-09-11 08:38 | WPDINFPN2 ---
Progress Note: A&P Assessment and Plan (1) Bacteremia: Code(s): R78.81 - Bacteremia Status: Acute Assessment and Plan: Klebsiella bacteremia with infection. REC Ctx #5 Subjective Date/time seen: 09/11/19 08:38 Objective Data Vital Signs Vital Signs: Vital Signs - 24 hr 09/10/19 10:00 09/10/19 11:56 09/10/19 12:00 Temperature 36.3 C L Pulse Rate 70 63 62 Respiratory Rate 16 Blood Pressure 128/54 L Pulse Oximetry 98 09/10/19 14:00 09/10/19 16:00 09/10/19 18:00 Temperature 36.9 C Pulse Rate 62 68 68 Respiratory Rate 16 Blood Pressure 94/70 L Pulse Oximetry 93 09/10/19 20:00 09/10/19 22:00 09/11/19 00:00 Temperature 36.7 C 37.1 C Pulse Rate 67 68 68 Respiratory Rate 22 H 18 Blood Pressure 131/50 L 136/48 L Pulse Oximetry 95 100 09/11/19 02:00 09/11/19 03:20 09/11/19 04:00 Temperature 36.3 C L Pulse Rate 65 64 67 Respiratory Rate 18 18 Blood Pressure 127/43 L Pulse Oximetry 97 100 Intake/Output Intake/Output: Intake & Output 09/08/19 09/09/19 09/10/19 09/11/19 23:59 23:59 23:59 23:59 Intake Total 1680 790 480 Output Total 1025 1000 950 600 Balance 655 -210 -470 -600 Meds/Results Medications: Active Medications Generic Name Dose Route Start Last Admin Trade Name Freq PRN Reason Stop Dose Admin Aspirin 81 mg 09/07/19 08:00 09/10/19 09:20 Aspirin Chewable PO 81 mg DAILY@0800 [facility] Administration Cyanocobalamin 2,000 mcg 09/07/19 12:00 09/10/19 09:19 Vitamin B-12 Tab PO 2,000 mcg DAILY@1200 [facility] Administration Dextrose 12.5 gm 09/07/19 00:22 Dextrose 50% Syringe IV PUSH PRN PRN Hypoglycemia Protocol Furosemide 20 mg 09/10/19 09:00 09/10/19 15:10 Lasix Tablet PO 20 mg DAILY [facility] Administration Glucagon 1 mg 09/07/19 00:22 Glucagon For Inj IM PRN PRN Hypoglycemia Protocol Glucose 15 gm 09/07/19 00:22 Glutose 15 PO PRN PRN Hypoglycemia Protocol Heparin Sodium (Porcine) 500 units 09/07/19 09:50 Heparin Sod Flush 100 Units/Ml IV PUSH PRN PRN see comments below Dextrose 1,000 mls @ 100 mls/hr 09/07/19 00:22 Dextrose 5% 1,000 Ml IVPB PRN PRN Hypoglycemia Protocol Ceftriaxone Sodium/Dextrose 1 gm in 50 mls @ 100 mls/hr 09/07/19 18:00 09/10/19 18:34 Rocephin 1 Gm/D5w 50 Ml IVPB 100 mls/hr QPM OBDULIA Administration Insulin Aspart 2 - 5 units 09/07/19 08:00 09/10/19 18:34 Novolog SUB-Q 2 units TIDWM OBD[facility]IA Administration Protocol Isosorbide Dinitrate 5 mg 09/07/19 09:00 09/10/19 21:14 Isordil PO 5 mg Q12HR [facility]BD[facility] Administration Lactulose 3.2481895 gm 09/07/19 18:00 09/10/19 18:29 Lactulose PO 10/07/19 18:01 3.3 gm QPM OBDULIA Administration Lactulose 13.8120860 gm 09/07/19 08:00 09/10/19 15:09 Lactulose PO 10/07/19 08:01 13.1722144 gm 0800,1200 [facility] Administration Magnesium Oxide 400 mg 09/08/19 09:00 09/10/19 09:20 Mag-Ox PO 400 mg QAM [facility]BD[facility] Administration Nitroglycerin 0.4 mg 09/07/19 00:32 Nitrostat Subl 0.4 Mg (1/150) SUBLINGUAL Q5MIN PRN Chest Pain Pregabalin 75 mg 09/07/19 09:00 09/10/19 21:14 Lyrica PO 75 mg Q12HR OBDULIA Administration Ranolazine 500 mg 09/07/19 09:00 09/10/19 21:15 Ranexa PO 500 mg Q12HR [facility] Administration Rifaximin 550 mg 09/07/19 09:00 09/10/19 18:32 Xifaxan PO 550 mg BID [facility] Administration Spironolactone 50 mg 09/10/19 09:00 09/10/19 15:10 Aldactone PO 50 mg QAM OBDULIA Administration Radiology Results: ITS Impressions Chest CT 09/06/19 21:41 IMPRESSION: 1. Large right pleural effusion with adjacent compressive atelectasis. 2. Hepatosplenomegaly, cirrhosis, ascites. Head CT 09/06/19 22:02 IMPRESSION: 1. No acute intracranial findings. 2. Chronic age related findings. Chest X-Ray 09/07/19 17:05 IMPRESSION: 1. Interval d
[2019-09-11] MEDS: PREGABALIN 75 MG CAPSULE PO ×2 (09:33→20:13)
[2019-09-11] MEDS: INSULIN ASPART (*BKC) 100 UNITS/ML SUB-Q ×3 (09:33→17:13)
[2019-09-11] MEDS: rifAXIMin 550 MG TABLET PO ×2 (09:33→17:23)
[2019-09-11] MEDS: FUROSEMIDE 20 MG TABLET PO (09:33)
[2019-09-11] MEDS: ASPIRIN 81 MG CHEWABLE TABLET PO (09:33)
[2019-09-11] MEDS: RANOLAZINE 500 MG TAB.ER.12H PO ×2 (09:33→20:11)
[2019-09-11] MEDS: MAGNESIUM OXIDE 400 MG TABLET PO (09:33)
[2019-09-11] MEDS: SPIRONOLACTONE 50 MG TABLET PO (09:33)
[2019-09-11] MEDS: ISOSORBIDE DINITRATE 5 MG TABLET PO ×2 (09:33→20:11)
[2019-09-11] MEDS: LACTULOSE 20 GM/30 ML UDC 13.3333333 GM PO ×2 (09:34→13:25)
--- NOTE | 2019-09-11 12:27 | WPDGIPROGNO ---
Progress Note: A&P Assessment and Plan (1) Non-alcoholic cirrhosis: Code(s): K74.60 - Unspecified cirrhosis of liver Status: Chronic Assessment and Plan: continue medical management and support, he has been treated in the past for HCC with ablation. (2) Ascites: Qualifiers: Ascites type: other type Qualified Code(s): R18.8 - Other ascites Code(s): R18.8 - Other ascites Status: Acute Assessment and Plan: increase dose of lasix and aldactone and continue to monitor renal function/lytes, 2g na diet (3) Bacteremia: Code(s): R78.81 - Bacteremia Status: Acute Assessment and Plan: Klebsiella pneumonia on iv abx, ID on board (4) Thrombocytopenia: Code(s): D69.6 - Thrombocytopenia, unspecified Status: Acute Assessment and Plan: chronic, multifactorial (cirrhosis, MDS) (5) Anasarca: Code(s): R60.1 - Generalized edema Status: Acute (6) Pleural effusion: Code(s): J90 - Pleural effusion, not elsewhere classified Status: Acute (7) Pneumonia: Qualifiers: Laterality: bilateral Lung location: lower lobe of lung Pneumonia type: due to unspecified organism Qualified Code(s): J18.9 - Pneumonia, unspecified organism Code(s): J18.9 - Pneumonia, unspecified organism Status: Acute (8) Myelodysplastic syndrome: Code(s): D46.9 - Myelodysplastic syndrome, unspecified Status: Chronic (9) Acute hepatic encephalopathy: Code(s): K72.00 - Acute and subacute hepatic failure without coma Status: Acute Assessment and Plan: he is getting lactulose and xifaxan. Subjective Date/time seen: 09/11/19 12:27 Interval history: no major changes other than POA noted that he has been sleeping this morning. Review of Systems Review of Systems: All systems reviewed & are unremarkable except as noted in HPI and below Exam Const: Other: wheezing, looks chronically ill HENMT: General nose exam: Normal nares present Eyes: EOM: EOMs intact bilaterally Neck: Neck: supple Resp: Effort & Inspection: normal respiratory effort Auscultation: diminished lung sounds Cardio: Rate: regular rate GI: GI Palp: No abdominal tenderness and Yes Ascites present Auscultation: normal bowel sounds Neuro: Other: confusion, he is following commands but can not tell details Extrem: Left upper extremity: edema Right lower extremity: edema Psych: Affect: Anxious affect present Objective Data Vital Signs Vital Signs: Vital Signs - 24 hr 09/10/19 14:00 09/10/19 16:00 09/10/19 18:00 Temperature 98.4 F Pulse Rate 62 68 68 Respiratory Rate 16 Blood Pressure 94/70 L Pulse Oximetry 93 09/10/19 20:00 09/10/19 22:00 09/11/19 00:00 Temperature 98.1 F 98.7 F Pulse Rate 67 68 68 Respiratory Rate 22 H 18 Blood Pressure 131/50 L 136/48 L Pulse Oximetry 95 100 09/11/19 02:00 09/11/19 03:20 09/11/19 04:00 Temperature 97.4 F L Pulse Rate 65 64 67 Respiratory Rate 18 18 Blood Pressure 127/43 L Pulse Oximetry 97 100 09/11/19 08:00 09/11/19 10:00 Temperature 96.7 F L Pulse Rate 57 L 57 L Respiratory Rate 16 Blood Pressure 115/52 L Pulse Oximetry 98 Intake/Output Intake/Output: Intake & Output 09/08/19 09/09/19 09/10/19 09/11/19 23:59 23:59 23:59 23:59 Intake Total 1680 790 480 240 Output Total 1025 1000 950 600 Balance 401 -124 -203 -032 Meds/Results Medications: Active Medications Generic Name Dose Route Start Last Admin Trade Name Freq PRN Reason Stop Dose Admin Aspirin 81 mg 09/07/19 08:00 09/11/19 09:33 Aspirin Chewable PO 81 mg DAILY@0800 [facility] Administration Cyanocobalamin 2,000 mcg 09/07/19 12:00 09/10/19 09:19 Vitamin B-12 Tab PO 2,000 mcg DAILY@1200 [facility] Administration Dextrose 12.5 gm 09/07/19 00:22 Dextrose 50% Syringe IV PUSH PRN PRN Hypoglycemia Protocol Furosemide 40 mg 01
[2019-09-11 13:25] LABS: Glucose Point of Care 220 (65-105)
[2019-09-11] MEDS: CYANOCOBALAMIN 1,000 MCG TABLET 2000 MCG PO (13:25)
--- NOTE | 2019-09-11 15:18 | PCPTNOTE ---
Pt declined sitting up on EOB and transfers out of bed.
--- NOTE | 2019-09-11 16:44 | PM.IMPN ---
Progress Note: A&P Assessment and Plan (1) Pleural effusion: Code(s): J90 - Pleural effusion, not elsewhere classified Status: Acute Assessment and Plan: 09/11/19 16:44 Patient is 69-year-old male with history of SHEPHERD and liver failure about a cell carcinoma patient is a [facility] patient was quite somnolent and lethargic he was sent to emergency department further evaluation his ammonia level is 77 upon arrival his hepatic encephalopathy, he has ascites and pleural effusion, on 09/07 patient had a thoracentesis and 1 L was removed and patient also had paracentesis and 1450ml was removed patient does not have SBP, is ammonia level is have improved to on 09/08 14 compared to when he arrived per 77 today its 32, patient is more alert and cooperative today, Patient is blood culture is growing Klebsiella pneumonia sensitive to Rocephin patient denies any abdominal pain nausea or vomiting fever or chill, will consult Dr. Willis for further recommendation, patient was seen by GI and order spironolactone and Lasix, today patient is more somnolent tired not as responsive, discussed with patient's daughter and considering possible hospice care (2) Acute hypokalemia: Code(s): E87.6 - Hypokalemia Status: Acute Assessment and Plan: Potassium was replaced on check a BMP and replace as needed. (3) Acute hepatic encephalopathy: Code(s): K72.00 - Acute and subacute hepatic failure without coma Status: Acute Assessment and Plan: Most likely secondary to SHEPHERD cirrhosis with ammonia level of 77 upon arrival patient is on lactulose his ammonia level today is 32 however patient appears more confused and tired (4) Sleep apnea: Qualifiers: Sleep apnea type: unspecified type Qualified Code(s): G47.30 - Sleep apnea, unspecified Code(s): G47.30 - Sleep apnea, unspecified Status: Chronic Assessment and Plan: Titrate CPAP (5) Cirrhosis: Qualifiers: Hepatic cirrhosis type: unspecified hepatic cirrhosis Ascites presence: with ascites Qualified Code(s): K74.60 - Unspecified cirrhosis of liver; R18.8 - Other ascites Code(s): K74.60 - Unspecified cirrhosis of liver Status: Chronic Assessment and Plan: Patient is seen by Dr. Muhammad recommended to continue present management added spironolactone and Lasix to diurese the patient (6) Myelodysplastic syndrome: Code(s): D46.9 - Myelodysplastic syndrome, unspecified Status: Chronic Assessment and Plan: The patient has seen Dr. carmichael and had been getting routine blood transfusions. I also consulted Oncology. Patient also has thrombocytopenia, his platelets are 44 will give 1 unit of platelets before the procedure, patient is seen by house wrecker (7) Anasarca: Code(s): R60.1 - Generalized edema Status: Acute Assessment and Plan: Due to SHEPHERD. Patient appears dry and his lactic acid has been increasing. I spoke with my collaborative who agrees with 1 L fluid bolus followed by IV Lasix. Continue with patient's ex Xifaxan when he is able to take his p.o. medication. on 09/10 added spironolactone and Lasix (8) Diabetes: Qualifiers: Diabetes mellitus type: type 2 Diabetes mellitus mcfp insulin use: with mcfp use Diabetes mellitus complication status: without complication Qualified Code(s): E11.9 - Type 2 diabetes mellitus without complications; Z79.4 - MCC (current) use of insulin Code(s): E11.9 - Type 2 diabetes mellitus without complications Status: Chronic Assessment and Plan: Accu-Cheks AC and HS. (9) Sepsis: Code(s): A41.9 - Sepsis, unspecified organism Status: Acute Assessment and Plan: Patient with criteria with fever elevated lactic acid tachycardia tachypnea blood cultures growing Klebsiella pneumonia most likely pneumonia as well as UTI patient being treated with cef
[2019-09-11 17:16] LABS: Glucose Point of Care 222 (65-105)
[2019-09-11] MEDS: LACTULOSE 20 GM/30 ML UDC 3.3333333 GM PO (17:22)
[2019-09-11] MEDS: ALBUTEROL SULFATE NEB 2.5 MG/0.5 ML INH (17:54)
[2019-09-11] MEDS: IPRATROPIUM BR 0.02% INH SOLN 0.5 MG/2.5 ML VIAL (17:55)
[2019-09-11] MEDS: FUROSEMIDE INJ 40 MG/4 ML VIAL IV PUSH (18:10)
[2019-09-11] MEDS: HEPARIN SOD FLUSH 500 UNITS/5 ML SYRINGE IV PUSH (18:10)
[2019-09-11 21:54] LABS: Glucose Point of Care 218 (65-105)
[2019-09-12] VITALS (14 sets, daily range): BP systolic 120–140; BP diastolic 46–50; PULSE 55–77; RESP 17–22; TEMP 36.4–36.7; O2SAT 91–100
[2019-09-12 04:47] LABS: Hematocrit 26.5 % (42.0-52.0); Hemoglobin 8.8 g/dL (14.0-18.0); Immature Platelet Fraction Pct 2.6 % (0.9-11.2); Mean Corpuscular HGB Conc 33.2 g/dl (32-36); Mean Corpuscular Volume 102.3 fl (80-100); Mean Platelet Volume 10.7 fl (7.4-10.4); Platelet Count Result 50 k/mm3 (150-375); Red Blood Count 2.59 M/mm3 (4.6-6.20); Red Cell Distribution Width 16.6 % (11.5-14.5)
[2019-09-12 04:56] LABS: White Blood Count 1.8 K/mm3 (4.5-10.0)
[2019-09-12 05:02] LABS: Ammonia 59 umol/L (9-30)
[2019-09-12 05:03] LABS: Alanine Aminotransferase 22 U/L (4-50); Albumin Level 2.1 g/dL (3.5-5.1); Alkaline Phosphatase 84 U/L (38-126); Aspartate Amino Transferase 35 U/L (17-59); Blood Urea Nitrogen 10 mg/dL (9-20); Calcium 8.2 mg/dL (8.4-10.2); Carbon Dioxide 35 mmol/L (22-30); Chloride 100 mmol/L (98-107); Estimated CRCL calculation 100 ml/min; Estimated Glomerular Filt Rate > 60; Glucose 182 mg/dL (75-110); Magnesium 1.6 mg/dL (1.6-2.3); Potassium 3.6 mmol/L (3.4-5.0); Sodium 137 mmol/L (137-145)
--- NOTE | 2019-09-12 06:54 | CONS_ITS ---
DATE OF CONSULTATION: 09/11/2019 REASON FOR CONSULTATION: Klebsiella bacteremia. HISTORY OF PRESENT ILLNESS: The patient is a 69-year-old male with chronic cirrhosis apparently due to SHEPHERD. Also, history of HCC with ablation performed. He denies history of bloodstream infection. 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 He has no other prosthetic devices. He presented to the hospital on the with decreased level of consciousness. He was diagnosed with hepatic encephalopathy. While here, he has had thoracentesis and paracentesis performed. After initial evaluation, blood cultures were collected for poorly documented reasons, but apparently due to his altered mental status. These became positive and final was on the . I was asked to see him on the . He has been on ceftriaxone, now day 5. He denies any other recent antibiotics. He denies any shortness of breath, chest pain, subjective fever, rigors, sweats, abdominal pain, flank pain, dysuria, hematuria, other voiding difficulties, sputum production, cough, or headaches. ALLERGIES: PENICILLIN, UNKNOWN REACTION. TRIMETHOPRIM SULFA, ELEVATED POTASSIUM LEVEL. OTHERS NOT PERTINENT. PRESENT MEDICATIONS: No immunosuppressants. He is on chronic rifaximin. HABITS: No tobacco. No alcohol. PAST MEDICAL HISTORY: In addition to the above, chronic ascites, BPH, cataract extraction, CAD, diabetes mellitus, previous GI hemorrhage, gout, hyperlipidemia, hypertension, nephrolithiasis, myelodysplastic syndrome, peripheral neuropathy, previous herpes zoster, ANJEL, cystoscopy with outcome unknown, rotator cuff repair, carpal tunnel, coronary stents, appendectomy, cholecystectomy. In contrast to the patient's history, computer record indicates total knee arthroplasty in the past. REVIEW OF SYSTEMS: 14-point review otherwise negative. FAMILY HISTORY: Diabetes, myelodysplastic syndrome in his mother. SOCIAL HISTORY: Ex-smoker. Lives in assisted living and apparently . No family at the bedside currently. PHYSICAL EXAM: GENERAL: Elderly male who appears older than his actual age. No respiratory distress. VITAL SIGNS: Temperature on admission 37.8, afebrile since. 127/43, 67, 18, 100% on 2 L. He is not on home O2. SKIN: No jaundice. No breaks in the skin or ulcers. No rashes. Warm and dry. NODES: He has no cervical or axillary adenopathy. EENT: Pupils equal, round, and react to light. There is no icterus. No conjunctival injection. No discharge. Paranasal sinuses without erythema, edema, or tenderness. Oropharynx, oral mucosa normal other than dry mucous membranes on the soft palate only. NECK: Without thyromegaly, abnormal contour, mass, tenderness, or meningismus. LUNGS: Clear to auscultation and percussion. CHEST: Equal expansion. Normal AP diameter. He has a Port-A-Cath, which is accessed right upper chest. No skin breakdown, hematoma. No other fluid collections are palpable. CARDIAC: Soft S1, S2. No heaves. PMI is not displaced. No murmurs. Peripheral pulses are 1+ and equal. ABDOMEN: Obese but also distended. He has a fluid wave. No hepatosplenomegaly noted on exam. Abdominal contour is otherwise normal. No hernias. EXTREMITIES: He has 2+ pedal and ankle edema, which is pitting. No venous varicosities. No calf tenderness. MUSCULOSKELETAL: No active joint inflammation. NEUROLOGIC: He is awake and answers questions and appropriate. LABORATORY DATA: On July 05, he had blood cultures performed, 1 out of 2 sets coagulase-negative staph. On September 06, 2 out of 2 sets Klebsiella pneumoniae, I reviewed the susceptibilities including MAMTA values. Urine culture, final no growth. MRSA screen negative
[2019-09-12] MEDS: ASPIRIN 81 MG CHEWABLE TABLET PO (08:15)
[2019-09-12] MEDS: FUROSEMIDE 20 MG TABLET 40 MG PO (08:17)
[2019-09-12] MEDS: LACTULOSE 20 GM/30 ML UDC 13.3333333 GM PO ×2 (08:17→13:10)
[2019-09-12] MEDS: RANOLAZINE 500 MG TAB.ER.12H PO ×2 (08:18→20:24)
[2019-09-12] MEDS: ISOSORBIDE DINITRATE 5 MG TABLET PO ×2 (08:18→20:24)
[2019-09-12] MEDS: MAGNESIUM OXIDE 400 MG TABLET PO (08:18)
[2019-09-12] MEDS: rifAXIMin 550 MG TABLET PO ×2 (08:18→18:03)
[2019-09-12] MEDS: SPIRONOLACTONE 50 MG TABLET 100 MG PO (08:19)
[2019-09-12] MEDS: PREGABALIN 75 MG CAPSULE PO ×2 (08:27→20:24)
[2019-09-12 08:44] LABS: Glucose Point of Care 184 (65-105)
--- NOTE | 2019-09-12 10:52 | WPDPN ---
Progress Note: A&P Assessment and Plan (1) Positive blood culture: Code(s): R78.81 - Bacteremia Status: Acute Assessment and Plan: patient not seen, Rn reports patient to enter hospice tomorrow, will sign off Objective Data Vital Signs Vital Signs: Vital Signs - 24 hr 09/11/19 12:00 09/11/19 14:00 09/11/19 16:00 Temperature 36.1 C L 36.1 C L Pulse Rate 54 L 82 65 Respiratory Rate 20 20 Blood Pressure 135/46 L 120/54 L Pulse Oximetry 100 99 09/11/19 17:53 09/11/19 18:00 09/11/19 18:04 Temperature Pulse Rate 60 66 14 L Respiratory Rate 13 57 H Blood Pressure Pulse Oximetry 09/11/19 20:00 09/11/19 22:00 09/11/19 23:27 Temperature 36.4 C L Pulse Rate 59 L 62 Respiratory Rate 18 Blood Pressure 129/53 L Pulse Oximetry 100 100 09/12/19 00:00 09/12/19 02:00 09/12/19 02:19 Temperature 36.7 C Pulse Rate 62 65 64 Respiratory Rate 18 17 Blood Pressure 133/46 L Pulse Oximetry 98 91 09/12/19 04:00 09/12/19 06:00 09/12/19 08:00 Temperature 36.4 C 36.4 C L Pulse Rate 59 L 56 L 57 L Respiratory Rate 18 20 Blood Pressure 122/49 L 120/50 L Pulse Oximetry 98 99 09/12/19 10:00 Temperature Pulse Rate 55 L Respiratory Rate Blood Pressure Pulse Oximetry Intake/Output Intake/Output: Intake & Output 09/09/19 09/10/19 09/11/19 09/12/19 23:59 23:59 23:59 23:59 Intake Total 790 530 930 540 Output Total 4253 417 0892 1950 [facility] -210 [phone] Meds/Results Medications: Active Medications Generic Name Dose Route Start Last Admin Trade Name Freq PRN Reason Stop Dose Admin Albuterol 1.25 mg 09/11/19 17:52 Albuterol Sulf Neb 2.5 Mg/3 Ml INHALATION Q6HR PRN Shortness Of Breath Aspirin 81 mg 09/07/19 08:00 09/12/19 08:15 Aspirin Chewable PO 81 mg DAILY@0800 OBDULIA Administration Cyanocobalamin 2,000 mcg 09/07/19 12:00 09/11/19 13:25 Vitamin B-12 Tab PO 2,000 mcg DAILY@1200 OBDULIA Administration Dextrose 12.5 gm 09/07/19 00:22 Dextrose 50% Syringe IV PUSH PRN PRN Hypoglycemia Protocol Furosemide 40 mg 09/11/19 12:26 09/12/19 08:17 Lasix Tablet PO 40 mg DAILY OBDULIA Administration Glucagon 1 mg 09/07/19 00:22 Glucagon For Inj IM PRN PRN Hypoglycemia Protocol Glucose 15 gm 09/07/19 00:22 Glutose 15 PO PRN PRN Hypoglycemia Protocol Heparin Sodium (Porcine) 500 units 09/07/19 09:50 09/11/19 18:10 Heparin Sod Flush 100 Units/Ml IV PUSH 500 units PRN PRN Administration see comments below Dextrose 1,000 mls @ 100 mls/hr 09/07/19 00:22 Dextrose 5% 1,000 Ml IVPB PRN PRN Hypoglycemia Protocol Ceftriaxone Sodium/Dextrose 1 gm in 50 mls @ 100 mls/hr 09/07/19 18:00 09/11/19 17:45 Rocephin 1 Gm/D5w 50 Ml IVPB Infused QPM OBDULIA Infusion Insulin Aspart 2 - 5 units 09/07/19 08:00 09/12/19 08:06 Novolog SUB-Q Not Given TIDWM [facility] Protocol Ipratropium [place] 0.5 mg 09/11/19 17:53 Atrovent Neb INHALATION Q6HRT PRN Shortness Of Breath Isosorbide Dinitrate 5 mg 09/07/19 09:00 09/12/19 08:18 Isordil PO 5 mg Q12HR OBDULIA Administration Lactulose 3.6454266 gm 09/07/19 18:00 09/11/19 17:22 Lactulose PO 10/07/19 18:01 3.5035992 gm QPM OBDULIA Administration Lactulose 13.5586187 gm 09/07/19 08:00 09/12/19 08:17 Lactulose PO 10/07/19 08:01 13.3 gm 0800,1200 OBDULIA Administration Magnesium Oxide 400 mg 09/08/19 09:00 09/12/19 08:18 Mag-Ox PO 400 mg QAM OBDULIA Administration Nitroglycerin 0.4 mg 09/07/19 00:32 Nitrostat Subl 0.4 Mg (1/150) SUBLINGUAL Q5MIN PRN Chest Pain Pregabalin 75 mg 09/07/19 09:00 09/12/19 08:27 Lyrica PO 75 mg Q12HR OBDULIA Administration Ranolazine 500 mg 09/07/19 09:00 09/12/19 08:18 Ranexa PO 500 mg Q12HR OBDULIA Administration Rifaximin 550 mg 09/07/19 09:00 09/12/19 08:18
[2019-09-12 13:02] LABS: Glucose Point of Care 211 (65-105)
[2019-09-12] MEDS: CYANOCOBALAMIN 1,000 MCG TABLET 2000 MCG PO (13:10)
[2019-09-12] MEDS: INSULIN ASPART (*BKC) 100 UNITS/ML SUB-Q (13:11)
[2019-09-12 17:57] LABS: Glucose Point of Care 192 (65-105)
[2019-09-12] MEDS: LACTULOSE 20 GM/30 ML UDC 3.3333333 GM PO (18:03)
--- NOTE | 2019-09-12 18:23 | PM.IMPN ---
Progress Note: A&P Assessment and Plan (1) Pleural effusion: Code(s): J90 - Pleural effusion, not elsewhere classified Status: Acute Assessment and Plan: 09/12/19 18:23 Patient is 69-year-old male with history of SHEPHERD and liver failure about a cell carcinoma patient is a [facility] patient was quite somnolent and lethargic he was sent to emergency department further evaluation his ammonia level is 77 upon arrival his hepatic encephalopathy, he has ascites and pleural effusion, on 09/07 patient had a thoracentesis and 1 L was removed and patient also had paracentesis and 1450ml was removed patient does not have SBP, is ammonia level is have improved to on 09/08 14 compared to when he arrived per 77 today its 32, patient is more alert and cooperative today, Patient is blood culture is growing Klebsiella pneumonia sensitive to Rocephin patient denies any abdominal pain nausea or vomiting fever or chill, will consult Dr. Willis for further recommendation, patient was seen by GI and order spironolactone and Lasix, today patient is more somnolent tired not as responsive, discussed with patient's daughter and considering possible hospice care, patient will be transferred to assisted living tomorrow where he will be admitted under hospice care. (2) Acute hypokalemia: Code(s): E87.6 - Hypokalemia Status: Acute Assessment and Plan: Potassium was replaced on check a BMP and replace as needed. (3) Acute hepatic encephalopathy: Code(s): K72.00 - Acute and subacute hepatic failure without coma Status: Acute Assessment and Plan: Most likely secondary to SHEPHERD cirrhosis with ammonia level of 77 upon arrival patient is on lactulose his ammonia level today is 32 however patient appears more confused and tired (4) Sleep apnea: Qualifiers: Sleep apnea type: unspecified type Qualified Code(s): G47.30 - Sleep apnea, unspecified Code(s): G47.30 - Sleep apnea, unspecified Status: Chronic Assessment and Plan: Titrate CPAP (5) Cirrhosis: Qualifiers: Hepatic cirrhosis type: unspecified hepatic cirrhosis Ascites presence: with ascites Qualified Code(s): K74.60 - Unspecified cirrhosis of liver; R18.8 - Other ascites Code(s): K74.60 - Unspecified cirrhosis of liver Status: Chronic Assessment and Plan: Patient is seen by Dr. Muhammad recommended to continue present management added spironolactone and Lasix to diurese the patient (6) Myelodysplastic syndrome: Code(s): D46.9 - Myelodysplastic syndrome, unspecified Status: Chronic Assessment and Plan: The patient has seen Dr. carmichael and had been getting routine blood transfusions. I also consulted Oncology. Patient also has thrombocytopenia, his platelets are 44 will give 1 unit of platelets before the procedure, patient is seen by platform material handler manager (7) Anasarca: Code(s): R60.1 - Generalized edema Status: Acute Assessment and Plan: Due to SHEPHERD. Patient appears dry and his lactic acid has been increasing. I spoke with my collaborative who agrees with 1 L fluid bolus followed by IV Lasix. Continue with patient's ex Xifaxan when he is able to take his p.o. medication. on 09/10 added spironolactone and Lasix (8) Diabetes: Qualifiers: Diabetes mellitus type: type 2 Diabetes mellitus penitentiary insulin use: with terminal worker use Diabetes mellitus complication status: without complication Qualified Code(s): E11.9 - Type 2 diabetes mellitus without complications; Z79.4 - supervisor intermediates (current) use of insulin Code(s): E11.9 - Type 2 diabetes mellitus without complications Status: Chronic Assessment and Plan: Accu-Cheks AC and HS. (9) Sepsis: Code(s): A41.9 - Sepsis, unspecified organism Status: Acute Assessment and Plan: Patient with criteria with fever elevated lactic acid tachycardia tachypnea blood
--- NOTE | 2019-09-12 19:37 | PC.NURSE ---
This patient, Benny Ryder, was transferred to [facility] on 09/12/19 at 1905. Personal belongings sent with patient. Belongings list checked and signed with receiving . Report given to STEFFANIE Greenfield . Appropriate documentation sent with patient.
[2019-09-12] MEDS: SODIUM CHLORIDE 0.9% IV 250 ML 30 ML IV CONT (20:22)
[2019-09-12] MEDS: HEPARIN SOD FLUSH 500 UNITS/5 ML SYRINGE IV PUSH (20:25)
[2019-09-12 21:11] LABS: Glucose Point of Care 253 (65-105)
[2019-09-13] VITALS: BP 142/51; PULSE 64; RESP 20; TEMP 36.2; O2SAT 98
[2019-09-13 01:05] VITALS: PULSE 63; RESP 21; O2SAT 95
[2019-09-13 03:41] VITALS: PULSE 60; RESP 19; O2SAT 94
[2019-09-13 04:00] VITALS: BP 134/55; PULSE 64; RESP 20; TEMP 36.7; O2SAT 98
[2019-09-13 05:06] LABS: Hematocrit 28.6 % (42.0-52.0); Hemoglobin 9.3 g/dL (14.0-18.0); Immature Platelet Fraction Pct 2.9 % (0.9-11.2); Mean Corpuscular HGB Conc 32.5 g/dl (32-36); Mean Corpuscular Hemoglobin 32.5 pg (26-34); Platelet Count Result 51 k/mm3 (150-375); Red Blood Count 2.86 M/mm3 (4.6-6.20)
[2019-09-13 05:13] LABS: Ammonia 78 umol/L (9-30)
[2019-09-13 05:22] LABS: Magnesium 1.7 mg/dL (1.6-2.3)
[2019-09-13 05:23] LABS: Alanine Aminotransferase 22 U/L (4-50); Albumin Level 2.1 g/dL (3.5-5.1); Alkaline Phosphatase 81 U/L (38-126); Aspartate Amino Transferase 36 U/L (17-59); Blood Urea Nitrogen 10 mg/dL (9-20); Calcium 8.3 mg/dL (8.4-10.2); Carbon Dioxide 33 mmol/L (22-30); Chloride 100 mmol/L (98-107); Estimated CRCL calculation 111 ml/min; Estimated Glomerular Filt Rate > 60; Glucose 192 mg/dL (75-110); Potassium 3.7 mmol/L (3.4-5.0); Sodium 137 mmol/L (137-145)
[2019-09-13 05:33] LABS: White Blood Count 1.8 K/mm3 (4.5-10.0)
[2019-09-13 08:00] VITALS: BP 129/45; PULSE 61; RESP 20; TEMP 36.7; O2SAT 98
[2019-09-13] MEDS: INSULIN ASPART (*BKC) 100 UNITS/ML SUB-Q (08:46)
[2019-09-13] MEDS: LACTULOSE 20 GM/30 ML UDC 13.3333333 GM PO (08:48)
[2019-09-13] MEDS: MAGNESIUM OXIDE 400 MG TABLET PO (08:49)
[2019-09-13] MEDS: RANOLAZINE 500 MG TAB.ER.12H PO (08:49)
[2019-09-13] MEDS: SPIRONOLACTONE 50 MG TABLET 100 MG PO (08:49)
[2019-09-13] MEDS: rifAXIMin 550 MG TABLET PO (08:49)
[2019-09-13] MEDS: ISOSORBIDE DINITRATE 5 MG TABLET PO (08:50)
[2019-09-13] MEDS: FUROSEMIDE 20 MG TABLET 40 MG PO (08:50)
[2019-09-13] MEDS: PREGABALIN 75 MG CAPSULE PO (08:50)
[2019-09-13] MEDS: ASPIRIN 81 MG CHEWABLE TABLET PO (08:50)
[2019-09-13 09:03] LABS: Glucose Point of Care 208 (65-105)
--- NOTE | 2019-09-13 10:14 | PM.DS ---
DS: Diagnosis Admitting Diagnosis Admitting Diagnosis: Pleural effusion, not elsewhere classified Discharge Diagnosis (1) Pleural effusion: Code(s): J90 - Pleural effusion, not elsewhere classified Status: Acute Assessment and Plan: 09/12/19 18:23 Patient is 69-year-old male with history of SHEPHERD and liver failure about a cell carcinoma patient is a [facility] patient was quite somnolent and lethargic he was sent to emergency department further evaluation his ammonia level is 77 upon arrival his hepatic encephalopathy, he has ascites and pleural effusion, on 09/07 patient had a thoracentesis and 1 L was removed and patient also had paracentesis and 1450ml was removed patient does not have SBP. Patient is blood culture is growing Klebsiella pneumonia sensitive to Rocephin. He has a Port-A-Cath in place chronically, which he has used for blood transfusion, due to MGUS. Patient was seen by GI and order spironolactone and Lasix, patient consciousness varies. Pt has hepatic encephalopathy, confusion and immobility and weakness, sob. Family have agreed on hospice. Going to [facility] with via [facility]. Daughter in [place], Son in [place]. (2) Acute hypokalemia: Code(s): E87.6 - Hypokalemia Status: Resolved Assessment and Plan: Potassium was replaced in hospital. (3) Acute hepatic encephalopathy: Code(s): K72.00 - Acute and subacute hepatic failure without coma Status: Acute Assessment and Plan: Most likely secondary to SHEPHERD cirrhosis (4) Sleep apnea: Qualifiers: Sleep apnea type: unspecified type Qualified Code(s): G47.30 - Sleep apnea, unspecified Code(s): G47.30 - Sleep apnea, unspecified Status: Chronic Assessment and Plan: Titrate CPAP (5) Cirrhosis: Qualifiers: Ascites presence: with ascites Hepatic cirrhosis type: unspecified hepatic cirrhosis Qualified Code(s): K74.60 - Unspecified cirrhosis of liver; R18.8 - Other ascites Code(s): K74.60 - Unspecified cirrhosis of liver Status: Chronic Assessment and Plan: Patient is seen by Dr. Muhammad recommended to continue present management added spironolactone and Lasix for further diuresis. (6) Myelodysplastic syndrome: Code(s): D46.9 - Myelodysplastic syndrome, unspecified Status: Chronic Assessment and Plan: The patient has seen Dr. Webster and had been getting routine blood transfusions. I also consulted Oncology. Patient also has thrombocytopenia, had one unit of platelets prior to discharge. Dr. Mclain as a follows him for iron deficiency anemia secondary to GI bleed due to esophageal varices. he requires frequent transfusion and iron infusion for his iron deficiency. He resides at [facility] and was found to have a low-grade fever. His past admission in June 2019 was for you to iron hepatic encephalopathy as well as hypokalemia. He follows with a hospice entrance attendant at [facility]. (7) Anasarca: Code(s): R60.1 - Generalized edema Status: Acute Assessment and Plan: Due to SHEPHERD. Continue with patient's ex Xifaxan when he is able to take his p.o. medication. on 09/10 added spironolactone and Lasix (8) Diabetes: Qualifiers: Diabetes mellitus complication status: without complication Diabetes mellitus intermediate accountant insulin use: with intermediate accountant use Diabetes mellitus type: type 2 Qualified Code(s): E11.9 - Type 2 diabetes mellitus without complications; Z79.4 - remote computer terminal operator (current) use of insulin Code(s): E11.9 - Type 2 diabetes mellitus without complications Status: Chronic Assessment and Plan: Accu-Cheks AC and HS. (9) Sepsis: Code(s): A41.9 - Sepsis, unspecified organism Status: Resolved Assessment and Plan: Patient with criteria with fever elevated lactic acid tachycardia tachypnea blood cultures growing Klebsiella pn
[2019-09-13] MEDS: HEPARIN SOD FLUSH 500 UNITS/5 ML SYRINGE IV PUSH (11:29)
--- NOTE | 2019-09-13 13:13 | PCDIET ---
Weekly nutritional screen. Pt d/c today to [facility] hospice per MD notes. Pt is has been on an appropriate diet: 2gm Na and eating an average of 60% of meals. We will continue to monitor for adequate intake weekly if pt does not d/c.
== END 2019-09-13 14:26 | disposition hospice, home (50) | DRG 871 ==
LOC: ANHED 20:04 → ANHIMU 23:24 → ANH2MED 09-12 21:58 → ANHIMU 09-16 09:27
PROVIDERS: Family Medicine; Nurse Practitioner; Admitting Provider Internal Medicine; Emergency Provider Emergency Medicine; PCP Internal Medicine; Visit Provider Family Medicine
DX: A41.59 Other Gram-negative sepsis (principal); K72.00 Acute and subacute hepatic failure without coma; J18.9 Pneumonia, unspecified organism; J90 Pleural effusion, not elsewhere classified; R18.8 Other ascites; I85.10 Secondary esophageal varices without bleeding; N39.0 Urinary tract infection, site not specified; K74.69 Other cirrhosis of liver; K75.81 Nonalcoholic steatohepatitis (NASH); D46.9 Myelodysplastic syndrome, unspecified; N40.0 Benign prostatic hyperplasia without lower urinary tract symptoms; E78.5 Hyperlipidemia, unspecified; I10 Essential (primary) hypertension; Z87.442 Personal history of urinary calculi; M10.9 Gout, unspecified; I25.10 Atherosclerotic heart disease of native coronary artery without angina pectoris; Z98.41 Cataract extraction status, right eye; Z98.42 Cataract extraction status, left eye; E11.9 Type 2 diabetes mellitus without complications; G47.30 Sleep apnea, unspecified; Z90.49 Acquired absence of other specified parts of digestive tract; E87.6 Hypokalemia; Z79.4 Long term (current) use of insulin; Z85.05 Personal history of malignant neoplasm of liver; N18.3 Chronic kidney disease, stage 3 (moderate); G47.33 Obstructive sleep apnea (adult) (pediatric); D69.6 Thrombocytopenia, unspecified; Z96.651 Presence of right artificial knee joint; Z95.5 Presence of coronary angioplasty implant and graft; Z87.891 Personal history of nicotine dependence; D63.8 Anemia in other chronic diseases classified elsewhere
CPT/HCPCS: 32555; 36415; 36430; 36600; 49083; 51701; 70450; 71046; 71250; 80048; 80053; 81001; 82040; 82042; 82140; 82150; 82805; 82945; 83605; 83615; 83735; 83880; 83986; 84157; 84311; 84478; 85025; 85027; 85055; 85610; 85730; 86140; 86850; 86900; 86901; 86922; 87015; 87040; 87070; 87075; 87077; 87081; 87086; 87102; 87116; 87186; 87205; 87206; 87804; 88104; 88108; 88305; 89051; 93005; 93308; 93970; 94640; 96365; 96367; 96375; 97110; 97161; 97165; 97530; 97535; 99285; P9036; P9038; A9270; J0131; J0456; J0696; J1815; J1940; J3475; J3480; J7030; J7050

== ENCOUNTER 2019-09-26 08:34 | Emergency (ER) | payer OTHER, MEDICARE, SELFPAY ==
--- NOTE | 2019-09-26 08:36 | ED.MALEGU ---
HPI - Male Genitourinary General Chief complaint: Urogenital-Male Stated complaint: PULLED OUT TINEO Time Seen by Provider: 09/26/19 08:34 Source: patient and RN notes reviewed Mode of arrival: EMS Limitations: dementia History of Present Illness HPI Narrative: Pt is a 69 y/o male with a Hx of dementia, who presents to the ED with c/o Tineo catheter complications starting this morning. According to the nurse, the pt had his Tineo catheter accidentally pulled out earlier this morning. She notes that hospice wanted him to be evaluated in the ED to have his Tineo catheter replaced. HPI limited due to pt's dementia. MD Complaint: other (Catheter Complications) Onset (ago): unknown Context: indwelling catheter Associated symptoms: Reports other (unobtainable) Related Data Home Medications Medication Instructions Recorded Confirmed Hm Complete 50+ 1 tab-cap PO DAILY 07/04/19 09/06/19 Humulin R U-500 (Conc) Kwikpen 30 - 55 unit SUBCUT TIDWM PRN 07/04/19 09/06/19 Thalomid 50 mg PO BID 07/04/19 09/06/19 Xifaxan 550 mg PO BID 07/04/19 09/06/19 allopurinol 100 mg PO Q12H 07/04/19 09/06/19 ascorbic acid (vitamin C) [Vitamin 1 g PO QNOON 07/04/19 09/06/19 C] aspirin 81 mg PO DAILY 07/04/19 09/06/19 atorvastatin 40 mg PO HS 07/04/19 09/06/19 bumetanide 2 mg PO DAILY 07/04/19 09/06/19 cholecalciferol (vitamin D3) 2,000 unit PO Q12H 07/04/19 09/06/19 [Vitamin D3] cinnamon bark [Cinnamon] 1,000 mg PO QNOON 07/04/19 09/06/19 clonidine HCl 0.1 mg PO DAILY 07/04/19 09/06/19 escitalopram oxalate 10 mg PO HS 07/04/19 09/06/19 isosorbide dinitrate 5 mg PO Q12H 07/04/19 09/06/19 nitroglycerin 0.4 mg SUBLINGUAL PRN PRN 07/04/19 09/06/19 omega 0-bti-pzw-fish oil [Fish Oil] 1 cap PO BID 07/04/19 09/06/19 pregabalin 75 mg PO Q12H 07/04/19 09/06/19 quinapril 10 mg PO DAILY 07/04/19 09/06/19 ranolazine 500 mg PO Q12H 07/04/19 09/06/19 ursodiol 500 mg PO TID 07/04/19 09/06/19 Vitamin B-12 2,000 mcg PO QNOON 09/06/19 09/06/19 lactulose 5 ml PO QPM 09/06/19 09/06/19 lactulose 20 ml PO BID 09/06/19 09/06/19 pantoprazole [Protonix] 40 mg PO QAM 09/06/19 09/06/19 Allergies Allergy/AdvReac Type Severity Reaction Status Date / Time diphenhydramine Allergy Unknown Itching Verified 08/24/19 13:21 Penicillins Allergy Unknown Unknown Verified 08/24/19 13:21 sulfamethizole Allergy Unknown Unknown Verified 08/24/19 13:21 sulfamethoxazole Allergy Unknown ELEVATED Verified 08/24/19 13:21 POTASSIUM LEVEL trimethoprim Allergy Unknown Unknown Verified 08/24/19 13:21 Review of Systems Review of Systems: Narrative: Complete ROS unobtainable due to pt's dementia. [facility] Past Medical History Medical History (Updated 09/26/19 @ 10:13 by Humberto Funes DO) Acute hepatic encephalopathy Acute hypokalemia Acute UTI Anemia Ascites Bacteremia Bacteriuria BPH (benign prostatic hyperplasia) Cataracts, bilateral Cirrhosis Coronary artery disease Dementia Diabetes DM (diabetes mellitus) DVT prophylaxis GI bleed Gout HCC (hepatocellular carcinoma) Hyperlipidemia Hypertension Increased ammonia level Kidney stone Myelodysplastic syndrome Non-alcoholic cirrhosis Pancytopenia Peripheral neuropathy Pleural effusion Port-A-Cath in place Right chest Renal disease stage 3 Shingles Sleep apnea Thrombocytopenia Surgical History Surgical History H/O cystoscopy H/O repair of rotator cuff rt x2 History of carpal tunnel release History of coronary artery stent placement Hx of appendectomy Hx of cardiac cath Hx of cataract surgery bilateral Hx of cholecystectomy with stent Hx of total knee arthroplasty rt patient stated he had 3 surgeries that right knee anti C3 scars. Social History Social History Social History: Patient lives in assisted living [facility]. He tells me he has 3 children. He tells me his but according to the records is
[2019-09-26 08:50] VITALS: BP 139/65; PULSE 66; RESP 16; TEMP 36.6; O2SAT 97
--- NOTE | 2019-09-26 10:12 | PC.NURSE ---
Called [facility] to transfer pt back to [facility]. ETA [id number]. Trip#[id number]
[2019-09-26 10:46] VITALS: BP 128/48; PULSE 65; RESP 16; O2SAT 97
--- NOTE | 2019-09-26 10:48 | PC.NURSE ---
Called [facility] at this time, gave pt report to STEFFANIE Sierra.
== END 2019-09-26 10:47 | disposition hospice, home (50) ==
PROVIDERS: Emergency Provider Emergency Medicine; PCP Internal Medicine
DX: T83.021A Displacement of indwelling urethral catheter, initial encounter (principal); Z87.891 Personal history of nicotine dependence; N40.0 Benign prostatic hyperplasia without lower urinary tract symptoms; I25.10 Atherosclerotic heart disease of native coronary artery without angina pectoris; K74.60 Unspecified cirrhosis of liver; F03.90 Unspecified dementia, unspecified severity, without behavioral disturbance, psychotic disturbance, mood disturbance, and anxiety; E11.9 Type 2 diabetes mellitus without complications; I10 Essential (primary) hypertension; Z87.442 Personal history of urinary calculi; Z79.4 Long term (current) use of insulin
CPT/HCPCS: 51702; 99283

== ENCOUNTER 2019-11-09 12:16 | Inpatient (IN) | payer MEDICARE, OTHER, SELFPAY ==
[2019-11-09] VITALS (13 sets, daily range): BP systolic 50–112; BP diastolic 22–67; PULSE 68–100; RESP 16–21; TEMP 36.2–37.4; O2SAT 94–100; BMI 31.6
--- NOTE | ~2019-11-09 | XR_ITS ---
EXAMINATION: XR chest 1V portable INDICATION: Shortness of breath TECHNIQUE: Portable AP chest at 1307 hours COMPARISON: 09/07/2019 FINDINGS: A right subclavian Port-A-Cath ends with its tip in the proximal superior vena cava. There are small pleural effusions. Airspace opacities are present in the mid and lower lung zones. There is no pneumothorax. There is stable cardiomegaly. IMPRESSION: 1. Small pleural effusions. 2. Airspace opacities of the mid and lower lung zones, consistent with atelectasis versus pneumonia. 3. Stable cardiomegaly. Reviewed, dictated and finalized at location B. IMPRESSION: 1. Small pleural effusions. 2. Airspace opacities of the mid and lower lung zones, consistent with atelecta sis versus pneumonia. 3. Stable cardiomegaly.
--- NOTE | ~2019-11-09 | CT_ITS ---
EXAMINATION: CT brain wo con DATE: 11/09/2019 20:13 INDICATION: Altered mental status. TECHNIQUE: Computed tomography (CT) of the head was performed without intravenous contrast. The mA wa s adjusted according to patient size. Iterative reconstruction technique was employed. The dose-lengt h product was 681.00 mGy-cm. COMPARISON: Head CT 09/06/2019 FINDINGS: There is no intracranial hemorrhage, acute infarction, or abnormal intracranial mass lesion . The ventricles are normal in size. There is mucosal thickening in the ethmoid and sphenoid sinuses. The mastoid air cells are normal. There are likely changes of ocular lens replacement surgeries. IMPRESSION: 1. Normal brain. Reviewed, dictated and finalized at location A. IMPRESSION: 1. Normal brain.
--- NOTE | 2019-11-09 12:24 | ED.AMS ---
HPI - Altered Mental Status General Chief Complaint: Altered Mental Status Stated Complaint: AMS/HYPOTENSION Time Seen by Provider: 11/09/19 12:18 Source: EMS and other (POA, nurse) Mode of arrival: EMS Limitations: clinical condition History of Present Illness HPI narrative: Pt is a 69 y/o male who presents to the ED, via EMS, from [facility], with c/o AMS. Per POA, pt is a full code on hospice. Per POA, pt was put on hospice because the family wanted him to stay at the assisted living and not go to a detention. POAstates that pt does not want to be intubated or be on a life support machine, but would like any other measures to keep him alive. Pt has a H/O stage 4 liver CA with metastases. Per nurse, pt is having explosive diarrhea in the ED bed. Per EMS, pt was given 15L O2 via non-rebreather en route to the ED and his BP was low. A complete HPI is limited d/t pt's clinical condition. MD complaint: altered mental status Onset (ago): unknown Context: other (liver CA stage 4 with metastases) Associated symptoms: diarrhea Treatments prior to arrival: oxygen (15L) Related Data Home Medications Medication Instructions Recorded Confirmed Hm Complete 50+ 1 tab-cap PO DAILY 07/04/19 09/06/19 Humulin R U-500 (Conc) Kwikpen 30 - 55 unit SUBCUT TIDWM PRN 07/04/19 09/06/19 Thalomid 50 mg PO BID 07/04/19 09/06/19 allopurinol 100 mg PO Q12H 07/04/19 09/06/19 atorvastatin 40 mg PO HS 07/04/19 09/06/19 bumetanide 2 mg PO DAILY 07/04/19 09/06/19 clonidine HCl 0.1 mg PO DAILY 07/04/19 09/06/19 escitalopram oxalate 10 mg PO HS 07/04/19 09/06/19 isosorbide dinitrate 5 mg PO Q12H 07/04/19 09/06/19 nitroglycerin 0.4 mg SUBLINGUAL PRN PRN 07/04/19 09/06/19 pregabalin 75 mg PO Q12H 07/04/19 09/06/19 quinapril 10 mg PO DAILY 07/04/19 09/06/19 ranolazine 500 mg PO Q12H 07/04/19 09/06/19 ursodiol 500 mg PO TID 07/04/19 09/06/19 Vitamin B-12 2,000 mcg PO QNOON 09/06/19 09/06/19 lactulose 5 ml PO QPM 09/06/19 09/06/19 lactulose 20 ml PO BID 09/06/19 09/06/19 pantoprazole [Protonix] 40 mg PO QAM 09/06/19 09/06/19 atropine [Isopto Atropine] 1 drp SUBLINGUAL Q1H PRN 11/09/19 11/09/19 insulin glargine [Lantus Solostar 20 unit SUBCUT DAILY 11/09/19 11/09/19 U-100 Insulin] morphine concentrate 5 mg PO Q4H PRN 11/09/19 11/09/19 Allergies Allergy/AdvReac Type Severity Reaction Status Date / Time diphenhydramine Allergy Unknown Itching Verified 11/09/19 17:40 Penicillins Allergy Unknown Unknown Verified 11/09/19 17:40 sulfamethizole Allergy Unknown Unknown Verified 11/09/19 17:40 sulfamethoxazole Allergy Unknown ELEVATED Verified 11/09/19 17:40 POTASSIUM LEVEL trimethoprim Allergy Unknown Unknown Verified 11/09/19 17:40 Review of Systems Review of Systems: ROS unobtainable: unobtainable due to mental condition Gastrointestinal: Gastrointestinal: Reports diarrhea PMFSH Past Medical History Medical History Acute hepatic encephalopathy Acute hypokalemia Acute UTI Anemia Ascites Bacteremia Bacteriuria BPH (benign prostatic hyperplasia) Cataracts, bilateral Cirrhosis Coronary artery disease Dementia Diabetes DM (diabetes mellitus) DVT prophylaxis GI bleed Gout HCC (hepatocellular carcinoma) Hyperlipidemia Hypertension Increased ammonia level Kidney stone Myelodysplastic syndrome Non-alcoholic cirrhosis Pancytopenia Peripheral neuropathy Pleural effusion Port-A-Cath in place Right chest Renal disease stage 3 Shingles Sleep apnea Thrombocytopenia Surgical History Surgical History H/O cystoscopy H/O repair of rotator cuff rt x2 History of carpal tunnel release History of coronary artery stent placement Hx of appendectomy Hx of cardiac cath Hx of cataract surgery bilateral Hx of cholecystectomy with stent Hx of total knee arthroplasty rt patient stated he had 3 surgeries that right knee anti C3 scars
--- NOTE | 2019-11-09 12:30 | PC.NURSE ---
pt had large liquid bm. edp informed. skin breakdown noted to buttocks. bm running out of anus. edp informed. rectal tube placed.
[2019-11-09] MEDS: SODIUM CHLORIDE 0.9% IV 1,000 ML 999 ML IV CONT ×2 (12:45→12:58)
[2019-11-09 13:38] LABS: Basophils Absolute Auto 0.1 K/mm3 (0.0-0.1); Basophils Percent Auto 0.8 % (0.2-1.2); Eosinophils Absolute Auto 0.2 K/mm3 (0-0.3); Eosinophils Percent Auto 1.8 % (0-4.4); Hematocrit 28.6 % (42.0-52.0); Hemoglobin 9.4 g/dL (14.0-18.0); Immature Granulocyte Absolute 0.04 K/mm3 (0.00-0.031); Immature Granulocyte Percent A 0.5 % (0-0.5); Lymphocytes Absolute Auto 0.85 K/mm3 (0.9-3.2); Lymphocytes Percent Auto 9.6 % (18.3-44.2); Mean Corpuscular HGB Conc 32.9 g/dl (32-36); Mean Corpuscular Hemoglobin 33.6 pg (26-34); Mean Corpuscular Volume 102.1 fl (80-100); Monocytes Absolute Auto 0.8 K/mm3 (0.1-0.6); Neutrophils Absolute Auto 6.9 K/mm3 (1.3-6.7); Neutrophils Percent Auto 78.3 % (45.5-73.1); Platelet Count Result 80 k/mm3 (150-375); Red Cell Distribution Width 16.7 % (11.5-14.5); White Blood Count 8.8 K/mm3 (4.5-10.0)
[2019-11-09 13:48] LABS: Alanine Aminotransferase 22 U/L (4-50); Alkaline Phosphatase 127 U/L (38-126); Aspartate Amino Transferase 34 U/L (17-59); Bilirubin,Total 1.5 mg/dL (0.2-1.3); Blood Urea Nitrogen 30 mg/dL (9-20); Carbon Dioxide 30 mmol/L (22-30); Chloride 98 mmol/L (98-107); Estimated Glomerular Filt Rate 40; Glucose 201 mg/dL (75-110); Sodium 131 mmol/L (137-145)
[2019-11-09 13:49] LABS: Ammonia 192 umol/L (9-30)
[2019-11-09 14:54] LABS: Glucose Point of Care 231 (65-105)
--- NOTE | 2019-11-09 15:40 | PC.NURSE ---
pt noted to be in puddle of bm. rectal tube placement confirmed. tube irrigated and fecal matter noted in drainage tube. pt again cleansed. linens changed.
--- NOTE | 2019-11-09 16:14 | PC.NURSE ---
This patient, Benny Ryder, was admitted to IMU Room 206-01. Patient/family oriented to hospital policies and general routines including ID bracelet, bed and alarms, visiting hours, pain management, procedures, bathroom and other care routines, personal items, smoking policy, room service/diet, and visiting hours. Valuables list has been completed. Information on how to activate the Rapid Response Team has been discussed. Patient/Family are encouraged to report perceived risks to care and to ask questions if they do not understand what they are told or what they should do.
--- NOTE | 2019-11-09 19:00 | PM.IMHP ---
H&P: [facility] History of Present Illness Chief complaint: Altered mental status. Narrative: Benny Ryder is a 69-year-old male with SHEPHERD, hepatocellular carcinoma status post microwave ablation, myelodysplastic syndrome, type 2 diabetes mellitus, sleep apnea, coronary artery disease, and hypertension who presented to the emergency department earlier today via EMS from [place] for evaluation of altered mental status. Given his clinical condition, he is unable to provide me with any history and as such all of this history is obtained via a review of his electronic medical records as well as with lengthy discussions with family members via phone. The patient has been on hospice since being discharged from the hospital September 13, 2019. Apparently he has been doing okay at his assisted living facility until the last couple of weeks, when he began becoming more confused and increasingly weak. According to family members, he has been staying in bed or in his recliner for nearly the past 2 weeks and in fact he has pressure sores on his back, buttocks, and he will because of this. He has had several falls, requiring EMS to come for lift assist. Yesterday, it took 4 people to get him off the ground. At that time, patient declined transport to the hospital. Today, he was more altered and unable to speak and was brought into the emergency department for evaluation. On arrival, his blood pressure was 60/39 which did improve somewhat with IV fluid rehydration. He was passing massive amounts of diarrhea and a rectal tube has since been placed, but he continues to have diarrhea around the tube. His creatinine has doubled over the last couple of months, and he has had minimal output from his Glover catheter today. His ex , Onelia, is his power of tax attorney and she revoked hospice in the emergency department and he was admitted to the hospitalist service for further treatment. After seeing and evaluating the patient, I discussed with Onelia and other family members via conference call that the patient had previously signed a form stating that he would want to be kept comfortable should the burden of treatment outweigh the benefits. In his condition, I do think that aggressive treatment would be considered extraordinary measures. They discussed amongst themselves and decided to initiate comfort measures tonight and they intend on signing up with [facility] in the morning. Review of Systems Review of Systems: Narrative: Unable to obtain given patient's current clinical condition as detailed in HPI. [facility] Past Medical History Medical History (Updated 11/09/19 @ 23:42 by Jacqui Simon PA-C) BPH (benign prostatic hyperplasia) Chronic anemia Coronary artery disease Status post stent x2. Dementia Esophageal varices in cirrhosis History of GI bleed due to esophageal and gastric varices. Gout Hepatocellular carcinoma Status post microwave ablation at [place]. History of kidney stones Hyperlipidemia Hypertension Myelodysplastic syndrome : Monoclonal gammopathy of undetermined significance. : Chronic pancytopenia. : Patient of Dr. Mclain. SHEPHERD (nonalcoholic steatohepatitis) Obstructive sleep apnea on CPAP Peripheral neuropathy Shingles Type 2 diabetes mellitus Surgical History Surgical History (Updated 11/09/19 @ 23:33 by Jacqui Simon PA-C) History of appendectomy History of carpal tunnel release History of cataract extraction History of cholecystectomy History of coronary artery stent placement History of repair of right rotator cuff History of right knee joint replacement Status post cystoscopy with ureteral stent placement Family History Family History Father Acute myocardial infarction Diabetes mellitus Mother Myelodysplasia (myelodysplastic syndrome) Sibling Diabetes mellitus Social History Social History (Updated 11/09/19 @ 23:34 by Jacqui Simon PA-C)
[2019-11-09] MEDS: SODIUM CHLORIDE 0.9% IV 1,000 ML 125 ML IV CONT (19:08)
[2019-11-09 20:45] LABS: Glucose Point of Care 183 (65-105)
[2019-11-09 23:45] LABS: IFOB Positive Control Positive; Immunochemical Fecal Occult Bl Positive (N)
[2019-11-10] VITALS: BP 98/34; PULSE 82; PULSE 84; RESP 20; TEMP 36.4; O2SAT 100
[2019-11-10 02:00] VITALS: PULSE 84
[2019-11-10] MEDS: SODIUM CHLORIDE 0.9% IV 1,000 ML 125 ML IV CONT (03:00)
[2019-11-10 04:00] VITALS: BP 96/37; PULSE 75; PULSE 77; RESP 22; TEMP 36.6; O2SAT 99
[2019-11-10 04:48] LABS: Hematocrit 27.5 % (42.0-52.0); Hemoglobin 9.2 g/dL (14.0-18.0); Immature Platelet Fraction Pct 3.5 % (0.9-11.2); Mean Corpuscular HGB Conc 33.5 g/dl (32-36); Mean Corpuscular Hemoglobin 33.6 pg (26-34); Mean Corpuscular Volume 100.4 fl (80-100); Mean Platelet Volume 11.6 fl (7.4-10.4); Platelet Count Result 73 k/mm3 (150-375); Red Blood Count 2.74 M/mm3 (4.6-6.20); Red Cell Distribution Width 16.8 % (11.5-14.5); White Blood Count 11.9 K/mm3 (4.5-10.0)
[2019-11-10 04:57] LABS: Ammonia 58 umol/L (9-30); Partial Thromboplastin Time 44.1 SECONDS (22.3-36.8); Prothrombin Time 22.6 Seconds (11.1-14.7)
[2019-11-10 05:01] LABS: Alanine Aminotransferase 24 U/L (4-50); Alkaline Phosphatase 131 U/L (38-126); Aspartate Amino Transferase 45 U/L (17-59); Bilirubin,Total 1.9 mg/dL (0.2-1.3); Blood Urea Nitrogen 41 mg/dL (9-20); Calcium 7.9 mg/dL (8.4-10.2); Carbon Dioxide 27 mmol/L (22-30); Chloride 97 mmol/L (98-107); Estimated CRCL calculation 32 ml/min; Estimated Glomerular Filt Rate 23; Glucose 221 mg/dL (75-110); Potassium 4.3 mmol/L (3.4-5.0); Sodium 132 mmol/L (137-145)
[2019-11-10 05:17] LABS: Band Neutrophils Percent 9 % (0-6); Lymphocytes Absolute Manual 0.23 K/mm3 (1.1-4.5); Monocytes Absolute Manual 0.71 K/mm3 (0.1-0.90); Monocytes Percent Manual 6 % (3-9); Neutrophils Absolute Manual 10.94 K/mm3 (1.3-6.7); Neutrophils Percent Manual 83 % (46-73); Platelet Estimate Decreased (Adequate); Total Cells Counted 100
[2019-11-10 05:18] LABS: Hypochromasia 1+ (NORMAL)
[2019-11-10 06:00] VITALS: PULSE 76
[2019-11-10 08:00] VITALS: BP 72/28; PULSE 79; PULSE 83; RESP 20; TEMP 36; O2SAT 96
[2019-11-10 10:00] VITALS: PULSE 77
[2019-11-10 12:26] LABS: Glucose Point of Care 238 (65-105)
[2019-11-10 13:19] VITALS: BMI 32.7
[2019-11-10] MEDS: HEPARIN SOD FLUSH 500 UNITS/5 ML SYRINGE IV PUSH (14:09)
--- NOTE | 2019-11-10 16:19 | PM.DS ---
DS: Diagnosis Admitting Diagnosis Admitting Diagnosis: Acute and subacute hepatic failure without coma Discharge Diagnosis (1) Acute hepatic encephalopathy: Code(s): K72.00 - Acute and subacute hepatic failure without coma Status: Acute Assessment and Plan: Date of Service 11/10/19 Mr. Ryder is a 69yo M with SHEPHERD, hepatocellular carcinoma s/p ablation, myelodysplastic syndrome, type 2 diabetes mellitus, sleep apnea, coronary artery disease, and hypertension who presented to the emergency department from [place] for evaluation of altered mental status. Patient had been on [facility] since being discharged from the hospital September 13, 2019. He has been living at [facility] assisted living and in the last couple weeks he became more confused and increasingly weak. His family members noted he had been staying in bed or in his recliner for several days and had pressure sores on his back, buttocks, and heels. He has had several falls, requiring EMS to come for lift assist. Ammonia level 192 on arrival. He was having large amounts of diarrhea and a fecal tube was placed. The patient's condition was discussed at length with multiple family members by other providers. YOCASTA noted the patient did not meet criteria for inpatient hospice at this time. Care coordination arranged for the patient to discharge back to [facility] with [facility]. (2) Diarrhea: Qualifiers: Diarrhea type: unspecified type Qualified Code(s): R19.7 - Diarrhea, unspecified Code(s): R19.7 - Diarrhea, unspecified Status: Acute (3) KOSTA (acute kidney injury): Code(s): N17.9 - Acute kidney failure, unspecified Status: Acute Assessment and Plan: [place] to be secondary to dehydration. He was treated with IV hydration here. (4) Hypotension: Code(s): I95.9 - Hypotension, unspecified Status: Acute Assessment and Plan: May be secondary to volume depletion. (5) Chronic anemia: Code(s): D64.9 - Anemia, unspecified Status: Acute Assessment and Plan: MGUS with chronic pancytopenia, stable on review of previous labs. (6) SHEPHERD (nonalcoholic steatohepatitis): Code(s): K75.81 - Nonalcoholic steatohepatitis (SHEPHERD) Status: Acute Assessment and Plan: LFTs have remained stable. Meld score unable to be calculated given lack of coag studies but obvious synthetic dysfunction with hypoproteinemia and hypoalbuminemia. (7) Hepatocellular carcinoma: Code(s): C22.0 - Liver cell carcinoma Status: Acute Assessment and Plan: Status post ablation. DS: Summary Time Spent with Patient Time attestation: Total time spent providing and/or coordinating discharge services: 45 minutes Exam Narrative: Exam Narrative: General: Acute and chronically ill-appearing male in the semi-[place] position in bed. HEENT: Normocephalic, atraumatic. Pupils are sluggishly reactive. Sclerae anicteric. Lips and oral mucosa are dry. Respiratory: Diminished anteriorly due to poor effort. Cardiovascular: Regular rate and rhythm with S1-S2. Gastrointestinal: Abdomen is soft, obese, and nontender with positive bowel sounds. No guarding or rebound tenderness. Genitourinary/rectal: Glover catheter in place. There is some breakdown on the head of the penis. A small amount of dark gopi urine is in the catheter bag. Rectal tube is in place. Skin: Warm, dry, and pale. There is an abrasion on the right 2nd toe. Toenails are thick and yellow. There is small area of bruising and skin breakdown on the left, lateral upper back near the scapula. There is a large blistered area encompassing the right medial heel which is boggy and discolored. Small pressure sore on the left medial heel.
== END 2019-11-10 14:20 | disposition hospice, home (50) | DRG 442 ==
LOC: ANHED 14:33 → ANHIMU 15:29
PROVIDERS: Physician Assistant; Admitting Provider Family Medicine; Emergency Provider Emergency Medicine; PCP Internal Medicine; Visit Provider Family Medicine
DX: K72.00 Acute and subacute hepatic failure without coma (principal); N17.9 Acute kidney failure, unspecified; C22.0 Liver cell carcinoma; E87.1 Hypo-osmolality and hyponatremia; R19.7 Diarrhea, unspecified; I95.9 Hypotension, unspecified; D64.9 Anemia, unspecified; K75.81 Nonalcoholic steatohepatitis (NASH); I12.9 Hypertensive chronic kidney disease with stage 1 through stage 4 chronic kidney disease, or unspecified chronic kidney disease; E11.22 Type 2 diabetes mellitus with diabetic chronic kidney disease; I25.10 Atherosclerotic heart disease of native coronary artery without angina pectoris; N18.3 Chronic kidney disease, stage 3 (moderate); E11.42 Type 2 diabetes mellitus with diabetic polyneuropathy; F03.90 Unspecified dementia, unspecified severity, without behavioral disturbance, psychotic disturbance, mood disturbance, and anxiety; N40.0 Benign prostatic hyperplasia without lower urinary tract symptoms; E78.5 Hyperlipidemia, unspecified; I10 Essential (primary) hypertension; L89.620 Pressure ulcer of left heel, unstageable; L89.616 Pressure-induced deep tissue damage of right heel; L89.326 Pressure-induced deep tissue damage of left buttock; E86.0 Dehydration; G47.33 Obstructive sleep apnea (adult) (pediatric); D46.9 Myelodysplastic syndrome, unspecified; Z96.651 Presence of right artificial knee joint; Z87.891 Personal history of nicotine dependence; Z95.5 Presence of coronary angioplasty implant and graft; Z90.49 Acquired absence of other specified parts of digestive tract
CPT/HCPCS: 36415; 70450; 71045; 80053; 82140; 82274; 85025; 85055; 85610; 85730; 87040; 87045; 87046; 87324; 87427; 89055; 96360; 99291; A9270; J7030